=== PATIENT | male | born 1945 | race Caucasian/White ===

== ENCOUNTER 2018-08-18 10:21 | Outpatient (REF) | payer MEDICARE, OTHER, SELFPAY ==
[2018-08-18 19:02] LABS: Anion Gap 8.2 mmol/L (3-11); BUN 14 mg/dL (7-18); CO2 26.8 mmol/L (21.0-32.0); CREATININE 1.49 mg/dL (0.70-1.30); Calcium 8.5 mg/dL (8.5-10.1); Chloride 106 mmol/L (98-107); Estimated GFR 45.98 (mL/min/1.73m2); Glucose 93 mg/dL (70-100); Potassium 4.4 mmol/L (3.5-5.1); Sodium 141 mmol/L (136-145); TSH 4.08 uIU/mL (0.358-3.74)
== END 2018-08-18 10:41 ==
LOC: NCHCN 10:21
PROVIDERS: PCP Nurse Practitioner Family; Visit Provider Physician Assistant Medical
DX: N18.3 Chronic kidney disease, stage 3 (moderate) (principal); E03.9 Hypothyroidism, unspecified; Z86.79 Personal history of other diseases of the circulatory system
CPT/HCPCS: 80048; 84443

== ENCOUNTER → 2019-02-07 10:38 | Outpatient (BNVA) | payer MEDICARE, OTHER, SELFPAY | PROVIDERS: PCP Nurse Practitioner Family; Visit Provider Urology | DX: N40.1 Benign prostatic hyperplasia with lower urinary tract symptoms (principal); N13.8 Other obstructive and reflux uropathy | CPT/HCPCS: 99213 ==

== ENCOUNTER 2019-02-16 15:16 | Outpatient (REF) | payer MEDICARE, OTHER, SELFPAY ==
[2019-02-16 20:07] LABS: Anion Gap 9.2 mmol/L (3-11); BUN 16 mg/dL (7-18); CO2 25.8 mmol/L (21.0-32.0); CREATININE 1.57 mg/dL (0.70-1.30); Calcium 8.7 mg/dL (8.5-10.1); Chloride 106 mmol/L (98-107); Estimated GFR 43.28 (mL/min/1.73m2); Glucose 77 mg/dL (70-100); Potassium 4.4 mmol/L (3.5-5.1); Sodium 141 mmol/L (136-145); TSH 3.41 uIU/mL (0.358-3.74)
== END 2019-02-16 15:36 ==
LOC: NCHCN 15:16
PROVIDERS: PCP Nurse Practitioner Family; Visit Provider Physician Assistant Medical
DX: E03.9 Hypothyroidism, unspecified (principal); N18.3 Chronic kidney disease, stage 3 (moderate); N40.0 Benign prostatic hyperplasia without lower urinary tract symptoms
CPT/HCPCS: 80048; 84443

== ENCOUNTER → 2019-04-06 09:00 | Outpatient (BNVA) | payer MEDICARE, OTHER, SELFPAY | PROVIDERS: PCP Physician Assistant Medical; Referring Provider Nurse Practitioner Family; Visit Provider Physical Therapy Assistant | DX: Z12.11 Encounter for screening for malignant neoplasm of colon (principal); I12.9 Hypertensive chronic kidney disease with stage 1 through stage 4 chronic kidney disease, or unspecified chronic kidney disease; N18.3 Chronic kidney disease, stage 3 (moderate) ==

== ENCOUNTER 2019-04-21 02:45 | Outpatient (CLI) | payer MEDICARE, OTHER, SELFPAY | END 2019-04-21 03:05 | PROVIDERS: PCP Physician Assistant Medical; Visit Provider Physical Therapy Assistant | DX: I10 Essential (primary) hypertension (principal); Z01.810 Encounter for preprocedural cardiovascular examination | CPT/HCPCS: 93005; 93010 ==

== ENCOUNTER 2019-04-28 06:59 | Day surgery (SDC) | payer MEDICARE, OTHER, SELFPAY ==
[2019-04-28 07:11] VITALS: BP 122/64; PULSE 70; RESP 17; TEMP 35.9; O2SAT 98
[2019-04-28] MEDS: Normal Saline 1,000 ML 80 ML IV (07:37)
--- NOTE | 2019-04-28 08:10 | W.PM.ENDDOP ---
Date of service: 04/28/19 Time of Service: 08:11 Endoscopy Report DATE OF PROCEDURE: 04/28/19 PRE-OP DIAGNOSIS: non cardiac chest pain/screening POST-OP DIAGNOSIS: other (gastritis/esophagitis- mild sm polyp x2 @ 30cm) PROCEDURE: egd w/ bx ce w/ polypectomy x1 SURGEON: Sara Danielson ANESTHESIA: GETA ESTIMATED BLOOD LOSS: 2 PATHOLOGY: other COMPLICATIONS: None DISPOSITION: PACU PREP: Miralax COLONOSCOPY RETRACTION TIME: 10 mins PROCEDURE DESCRIPTION: After informed consent was obtained the patient was take to the procedure room and placed in a supine position. Monitors were applied and a time out was done. The patients name, date of , procedure type, allergies to medications and metal in their body was reviewed. A bite block was placed and the patient was sedated. Once sedated and comfortable the gastroscope was advanced through the oropharynx which was grossly normal into the esophagus. The proximal and mid-esophagus were []. In the distal esophagus there was [] noted. The scope was advanced into the stomach and through the pylorus into the 3rd portion of the duodenum. The duodenum was noted to be []. Biopsies were done []. The scope was retracted back into the stomach and biopsies were done to rule out H. pylori. There were [] ulcers. The scope was retroflexed. The cardia and fundus were noted to be normal. There [] a hiatal hernia noted. The scope was retracted back into the esophagus and biopsies were done of the GE junction to rule out Messer's. The Z line was regular. The GE junction was at [] cm. After informed consent was obtained the patient was taken to the procedure room and placed in a left decubitous position. Monitors were applied and a time out was done. The patients name, date of , procedure, allergies to medications and metal in their body was reviewed. The patient was then sedated. Once sedated and comfortable a rectal exam was done. External exam was normal. Internal exam revealed a normal sphincter tone and no palpable masses. The prostate []. The scope was then introduced and retrofelexed. [] internal hemorrhoids were identified. The scope was then advanced to the cecum [] difficulty. The TI and appendiceal orifice were identified. The prep was []. The scope was then slowly retracted over [] minutes back into the rectum. Polyps were removed at []. The scope was removed and the patient was woken up and taken back to Same day surgery in stable condition. The patient tolerated the procedure well and there were no immediate complications. Follow up: The patient should follow up in [] years unless they develop changes in bowel habits or other new gastrointestinal complaints.
--- NOTE | 2019-04-28 09:10 | BOWEL_PTH ---
PATIENT: Alban Condon LOC: [facility] U#:[id number] AGE/SX: 74/M ROOM: RE04/28/[address]: Sara Danielson : 1945 BED: DIS: 04/28/2019 SPEC #: [id number] RECD: 04/28/19 12:49 STATUS: BILL REQ #: [id number] HARSH: 04/28/19 09:[address]: Sara Danielson DEPT: Surgical Specimen RECD BY: Lynsey Cooper ENTERED: 04/28/19 12:50 SP TYPE: Bowel OTHR DR: Que Delacruz V Tissues: 1 - BIOPSY BOWEL 2 - BIOPSY BOWEL Procedures: GROSS AND MICRO LEVEL 4 Comments: [id number]
--- NOTE | 2019-04-28 09:28 | COLE_ITS ---
Date of service: 04/28/19 Time of Service: 09:25 Colonoscopy Report Date of procedure: 04/28/19 Pre-op diagnosis general: crc screen Post-op diagnosis procedure note: other (diverticula ) Procedure: ce Surgeon: Sara Danielson Anesthesia proc note operative: GETA Estimated blood loss (mL): 2 Pathology: other Complications: None Disposition: same day Prep: Miralax Retraction Time: 10 mins Procedure Description: After informed consent was obtained the patient was taken to the procedure room and placed in a left decubitous position. Monitors were applied and a time out was done. The patients name, date of , procedure, allergies to medications and metal in their body was reviewed. The patient was then sedated. Once sedated and comfortable a rectal exam was done. External exam was normal. Internal exam revealed a normal sphincter tone and no palpable masses. The prostate not palpable. The scope was then introduced and retrofelexed. no internal hemorrhoids were identified. The scope was then advanced to the cecum without difficulty. The TI and appendiceal orifice were identified. The prep was adequate . The scope was then slowly retracted over 10 minutes back into the rectum. No Polyps. There was some mild general redness to the mucosa- bx were taken at cecum and 50cm/transverse w/ cold biter. This was not present in left colon. It is prob ably due to irritation from the prep. He does have a few small scattered diverticula in the sigmoid colon. no sign of active bleeding or infection. no polyp. The scope was removed and the patient was woken up and taken back to Same day surgery in stable condition. The patient tolerated the procedure well and there were no immediate complications. Follow up: The patient does not require any further CE's, unless they develop changes in bowel habits or other new gastrointestinal complaints.
--- NOTE | 2019-04-28 09:29 | W.PM.DSUDISC ---
DS: Diagnosis Discharge Diagnosis (1) Diverticula of colon: Status: Acute
[2019-04-28 10:01] VITALS: BP 114/70; PULSE 87; RESP 18; TEMP 36.4; O2SAT 96
== END 2019-04-28 10:23 | disposition home or self-care (01) ==
PROVIDERS: PCP Physician Assistant Medical; Visit Provider Surgery
PROC: 0DJD8ZZ Inspection of Lower Intestinal Tract, Via Natural or Artificial Opening Endoscopic (ICD-10-PCS; CPT 45378; principal; 2019-04-28 08:45)
DX: Z12.11 Encounter for screening for malignant neoplasm of colon (principal); K57.30 Diverticulosis of large intestine without perforation or abscess without bleeding
CPT/HCPCS: 45380; 88305

== ENCOUNTER 2019-05-16 01:10 | Outpatient (CLI) | payer MEDICARE, OTHER, SELFPAY ==
--- NOTE | 2019-05-16 07:49 | DI.CT_ITS ---
SYMPTOM/DIAGNOSIS: ISCHEMIA ON COLONOSCOPY BX. ATRIAL FLUTTER, HTN, i 48.[address] ANGIOGRAPHY OF THE ABDOMEN AND PELVIS: CT angiography was performed with multi slice acquisition and multi planar and 3D reconstruction. There are no prior comparison exams. There is biatrial and biventricular enlargement. The aorta is normal in diameter There is minimal calcification at the origin of the celiac axis but no significant stenosis. There is minimal calcification in the mid to distal abdominal aorta with minimal mural thrombus. The mesenteric vessels are normally opacified. The renal arteries also appear intact. There is no bowel wall thickening or abnormal distension. There is diverticulosis of the lower descending and sigmoid colon without evidence of diverticulitis. There is a large quantity of stool in the rectum. The remainder of the colon shows a moderate quantity of stool. There is a bladder diverticulum at the superior left side of the bladder. A portion of the right anterior bladder is seen herniating in to the right inguinal canal. A large amount of fat also is seen herniating through the right inguinal canal. There is some thickening of the bladder wall which appears diffuse. The prostate does not appear enlarged. The patient may be status post prostatectomy. The appendix appears normal. There is a moderate size hiatal hernia. The liver, spleen, adrenals, pancreas and kidneys are unremarkable. A stone is seen in the gallbladder. There is no gallbladder wall thickening or biliary dilatation. Degenerative changes are seen in the lumbar spine. IMPRESSION: 1. Mild atherosclerotic changes of the abdominal aorta. The branch vessels appear intact without significant stenosis. No bowel ischemia is visible. 2. Large right inguinal hernia containing a portion of the urinary bladder.
[2019-05-16 09:08] LABS: Anion Gap 11.9 mmol/L (3-11); BUN 14 mg/dL (7-18); CO2 25.1 mmol/L (21.0-32.0); CREATININE 1.43 mg/dL (0.70-1.30); Calcium 9.1 mg/dL (8.5-10.1); Chloride 106 mmol/L (98-107); Estimated GFR 48.08 (mL/min/1.73m2); Glucose 96 mg/dL (70-100); Potassium 4.5 mmol/L (3.5-5.1); Sodium 143 mmol/L (136-145)
[2019-05-16] MEDS: Omnipaque 350 MG/ML 100 ML BTL IJ (09:10)
== END 2019-05-16 01:30 ==
PROVIDERS: PCP Physician Assistant Medical; Visit Provider Surgery
DX: I10 Essential (primary) hypertension (principal); I48.92 Unspecified atrial flutter; N18.3 Chronic kidney disease, stage 3 (moderate); K44.9 Diaphragmatic hernia without obstruction or gangrene; K40.90 Unilateral inguinal hernia, without obstruction or gangrene, not specified as recurrent; K57.30 Diverticulosis of large intestine without perforation or abscess without bleeding; N32.3 Diverticulum of bladder
CPT/HCPCS: 80048; 74174; J3490

== ENCOUNTER 2019-08-17 11:12 | Outpatient (REF) | payer MEDICARE, OTHER, SELFPAY ==
[2019-08-17 18:32] LABS: Anion Gap 9.7 mmol/L (3-11); BUN 17 mg/dL (7-18); CO2 25.3 mmol/L (21.0-32.0); Calcium 8.8 mg/dL (8.5-10.1); Chloride 106 mmol/L (98-107); Estimated GFR 42.24 (mL/min/1.73m2); Glucose 98 mg/dL (70-100); Potassium 4.5 mmol/L (3.5-5.1); Sodium 141 mmol/L (136-145)
[2019-08-21 10:50] LABS: Hepatitis C Ab w Rflx HCV PCR Negative (NEGAT)
[2019-08-21 11:42] LABS: HIV-1/2 Ag & Ab Screen Negative (NEGAT)
== END 2019-08-17 11:32 ==
LOC: NCHCN 11:12
PROVIDERS: PCP Physician Assistant Medical; Visit Provider Nurse Practitioner Family
DX: N18.3 Chronic kidney disease, stage 3 (moderate) (principal); Z11.4 Encounter for screening for human immunodeficiency virus [HIV]; Z11.59 Encounter for screening for other viral diseases
CPT/HCPCS: 80048; 86803; 87389

== ENCOUNTER → 2020-02-05 13:27 | Outpatient (BNVA) | payer MEDICARE, OTHER, SELFPAY | PROVIDERS: PCP Physician Assistant Medical; Visit Provider Urology | DX: N40.1 Benign prostatic hyperplasia with lower urinary tract symptoms (principal); N13.8 Other obstructive and reflux uropathy | CPT/HCPCS: 99213 ==

== ENCOUNTER 2020-08-22 08:42 | Outpatient (REF) | payer MEDICARE, OTHER, SELFPAY ==
[2020-08-22 18:57] LABS: Abs Immature Grans 0.02 10^3/uL (0.0-0.06); Absolute Basophil Count 0.13 10^3/uL (0.0-0.2); Absolute Eosinophil Count 0.63 10^3/uL (0.0-0.7); Absolute Lymphocyte Count 1.27 10^3/uL (1.2-3.4); Absolute Neutrophil Count 5.94 10^3/uL (1.2-6.7); Basophils % 1.5; Eosinophils % 7.1; HCT 42.5 % (40.0-50.0); HGB 14.4 g/dL (13.5-17.5); Immature Grans % 0.2; Lymphocytes % 14.3; MCHC 33.9 % (32.0-36.0); MCV 85.7 fL (80-95); MPV 10.8 fL (8.0-11.0); Monocytes % 10.1; Neutrophils % 66.8; Nucleated RBC 0 %; Platelet Count 275 10^3/uL (130-400); RBC 4.96 10^6/uL (4.36-5.78); RDW 13.2 % (11.8-14.1); RDW-SD 40.9 fL; WBC 8.89 10^3/uL (4.4-10.8)
[2020-08-22 19:25] LABS: ALT 16 U/L (16-63); AST 20 U/L (15-37); Albumin 3.3 g/dL (3.4-5.0); Alkaline Phosphatase 91 U/L (46-116); Anion Gap 9.1 mmol/L (3-11); BUN 16 mg/dL (7-18); Bilirubin, Total 0.9 mg/dL (0.2-1.0); CO2 23.9 mmol/L (21.0-32.0); CREATININE 1.41 mg/dL (0.70-1.30); Calcium 8.6 mg/dL (8.5-10.1); Calculated LDL 108 mg/dL (<100); Chloride 108 mmol/L (98-107); Cholesterol 168 mg/dL (<200); Estimated GFR 48.74 (mL/min/1.73m2); Glucose 95 mg/dL (74-106); HDL Cholesterol 35 mg/dL (40-60); Potassium 4.4 mmol/L (3.5-5.1); Sodium 141 mmol/L (136-145); TSH (W/Ref FT4) 4.32 uIU/mL (0.36-3.74); Total Protein 6.6 g/dL (6.4-8.2); Triglyceride 127 mg/dL (<150)
== END 2020-08-22 09:02 ==
LOC: NCHCN 08:42
PROVIDERS: PCP Physician Assistant Medical; Visit Provider Physician Assistant
DX: E03.9 Hypothyroidism, unspecified (principal); N18.30 Chronic kidney disease, stage 3 unspecified; J30.2 Other seasonal allergic rhinitis; N40.0 Benign prostatic hyperplasia without lower urinary tract symptoms; Z86.79 Personal history of other diseases of the circulatory system
CPT/HCPCS: 80053; 80061; 84439; 84443; 85025

== ENCOUNTER → 2021-02-07 14:11 | Outpatient (BNVA) | payer MEDICARE, OTHER, SELFPAY | PROVIDERS: Referring Provider Physician Assistant Medical; Visit Provider Urology | DX: N40.1 Benign prostatic hyperplasia with lower urinary tract symptoms (principal); R35.0 Frequency of micturition | CPT/HCPCS: 81003; 99213; 99214 ==

== ENCOUNTER 2021-02-07 18:33 | Outpatient (REF) | payer MEDICARE, OTHER, SELFPAY | END 2021-02-07 18:34 | disposition home or self-care (01) | LOC: LBN 18:33 | PROVIDERS: Visit Provider Urology | DX: N13.8 Other obstructive and reflux uropathy (principal); N40.1 Benign prostatic hyperplasia with lower urinary tract symptoms | CPT/HCPCS: 87077; 87086; 87186 ==

== ENCOUNTER 2021-02-18 13:44 | Outpatient (REF) | payer MEDICARE, OTHER, SELFPAY ==
[2021-02-18 17:48] LABS: RBC >50 HPF (0-2)
[2021-02-18 17:49] LABS: C & S Indicated? C&S Done As Ordered
== END 2021-02-18 13:45 | disposition home or self-care (01) ==
LOC: NCHCN 13:44
PROVIDERS: PCP Physician Assistant; Visit Provider Physician Assistant
DX: R31.9 Hematuria, unspecified (principal)
CPT/HCPCS: 81015; 87086

== ENCOUNTER 2021-02-24 17:42 | Outpatient (REF) | payer MEDICARE, OTHER, SELFPAY | END 2021-02-24 17:43 | disposition home or self-care (01) | LOC: NCHCN 17:42 | PROVIDERS: PCP Physician Assistant; Visit Provider Physician Assistant | DX: R31.9 Hematuria, unspecified (principal) | CPT/HCPCS: 87086 ==

== ENCOUNTER 2021-03-17 02:31 | Outpatient (CLI) | payer MEDICARE, OTHER, SELFPAY ==
--- NOTE | 2021-03-17 07:30 | DI.US_ITS ---
EXAM: US RENAL CLINICAL HISTORY: hematuria,R31.0 TECHNIQUE: Ultrasound of both kidneys performed using standard protocol. COMPARISON: None FINDINGS: RIGHT KIDNEY: Measures 10.7 cm in length. No cysts evident. Normal cortical thickness and corticomedullary differen tiation .No solid masses No intrarenal calculi nor hydronephrosis. LEFT KIDNEY: Measures 11.1 cm in length. No cysts evident. Normal cortical thickness and corticomedullary differe ntiaion. No solids masses. No intrarenal calculi nor hydonephrosis. URINARY BLADDER: Prevoid volume is 68 cc Patient was apparently not able to void In addition to bladder wall trabeculation there was a focal area of bladder wall thickening on the an terior superior aspect of the bladder. Cystoscopy recommended. Ureterovesical jets: Left identified. Right was not identified. Prostate gland is slightly enlarged IMPRESSION: 1. No significant ultrasound findings in the kidneys. 2. Patient not adequately hydrated for this exam will knee prevoid volume 68 cc However, there does appear to be both bladder wall trabeculation and focal thickening of the bladder wall anterosuperior aspect which will require cystoscopy to rule out neoplasm. DATA REPOSITORY:
== END 2021-03-17 02:51 ==
PROVIDERS: PCP Physician Assistant; Visit Provider Urology
DX: R31.0 Gross hematuria (principal); N40.0 Benign prostatic hyperplasia without lower urinary tract symptoms; N32.89 Other specified disorders of bladder
CPT/HCPCS: 76770

== ENCOUNTER → 2021-04-29 08:56 | Outpatient (BNVA) | payer MEDICARE, OTHER, SELFPAY | PROVIDERS: PCP Physician Assistant; Referring Provider Physician Assistant; Visit Provider Urology | DX: R31.0 Gross hematuria (principal) | CPT/HCPCS: 99213; 99443 ==

== ENCOUNTER 2021-08-20 21:08 | Observation (INO) | payer MEDICARE, OTHER, SELFPAY ==
[2021-08-20 21:10] VITALS: BP 117/83; PULSE 88; RESP 19; TEMP 36.1; O2SAT 98
--- NOTE | 2021-08-20 21:15 | RT.EKG_ITS ---
APPROVED REPORT Exam: Resting ECG Reason for Exam: Dizziness Patient Location: E HR:82 bpm ECG Measurements Heart Rate 82 AXIS LA [id number] P [id number] QRSd 110 QRS -18 QT 369 T -18 QTc 448 Conclusion Atrial flutter...A-rate 272
[2021-08-20 21:16] VITALS: RESP 19
--- NOTE | 2021-08-20 22:05 | ED.GENADUL_ITS ---
Discharge Plan Disposition Patient Disposition: HOME Condition: Stable Discharge Details Clinical Impression: Lightheadedness, Diarrhea, Hematochezia Primary Care Provider: Any Gibbons ED Provider: Vijay Latham Discharge Data Discharge Date/Time-TO BE ENTERED AT DEPARTURE: 08/21/21 09:46 Medical Decision Making <Manuel Groves MD - Last Filed: 08/22/21 22:37> 76-year-old male with history of a flutter, chronic kidney disease, presents after dizzy spell while square dancing. Episode was brief lasting few minutes and resolved. He did have a loose bowel movement. Patient asymptomatic on init ial assessment. Patient hemodynamically stable and neurologically intact with no concerning findings on exam EKG was reviewed and interpreted by me: Atrial flutter, 82 bpm, no STEMI. Screening labs were reviewed and patient does have mild leukocytosis. Electrolytes are normal. Patient did develop some nausea here in the emerge department and was given Zofran IV. He was given a 500 mL IV fluid bolus. Considered ACS. Patient has no chest pain. Troponin was drawn 3 hours after episode and negative. Patient ambulated around the emergency department and noted to have some weakness in his leg. We will give additional IV fluid and check a delta troponin. <Vijay Latham DO - Last Filed: 08/21/21 06:01> Patient was signed out to me by my colleague Dr. Manuel Groves. Please refer to his HPI, physical exam, assessment and plan. At time of signout we are awaiting repeat troponin and EKG. These have returned and are stable/unremarkable. Reassessment of the patient demonstrates a well-appearing male, patient is in mild atrial fibrillation. Abdomen nontender, neurologic exam unremarkable. Patient appears notably stable, and feels better but still does feel slightly weak. At this time at 2 AM patient does not have a ride home. Patient was given option of continued observation versus discharge, he states he would like to go home rather than stay overnight in the hospital. Unfortunately because he does not have a ride, and is not currently available we will keep the patient here in the ED for the next few hours until they are available. We will discharge him today 2 hours. We will continue to gently rehydrate. We will give an additional 1 L fluid bolus. 5:57 AM On reassessment the patient has had 3-4 episodes of profuse watery diarrhea while here. Patient's heart rate remains elevated at around 110 after repeat 1 L fluid bolus. We did perform a Hemoccult test of the stool, and it is Hemoccult positive. Repeat abdominal exam continues to show no abdominal tenderness. Concern for potential infectious diarrhea versus GI bleed, hemoglobin stable though. He obviously is on Pradaxa which does preclude him to high likelihood for bleeding. Patient does live alone. With the patient's persistent diarrhea, mild tachycardia, I do feel that he would benefit from inpatient admission, continued hydration and close monitoring. Discussed the case with the hospitalist Dr. Perez, she agrees with the assessment and plan. I have extensively reviewed the treatment plan with the patient. I have addressed all patient concerns at this time. I have also discussed the plan with the admitting physician and they agree with the current assessment and plan and have agreed to assume responsibility for the patient. All parties demonstrate verbal understanding and agreement with our assessment and plan at this time. The documentation in this chart was dictated using [employer] dictation software. Please excuse any dictation errors. HPI <Manuel Groves MD - Last Filed: 08/22/21 22:37> General Mode of arrival: EMS . Date/Time Provider Initiated Documentation: 08/20/21 21:25 . Limitations to Documentation: no limitations . Information obtained by: patient and EMS . HPI Narrative: 76-year-old male presents after presyncopal spell. Patient was square dancing for over an hour and developed some dizziness. He describes the dizziness as lightheadedness. Symptoms lasted a couple minutes and he rested and symptoms completely resolved. Patient then had a loose bowel movement. He does note he had a few loose bowel movements over the past couple weeks. He denies associated chest pain. No shortness of breath. No abdominal pain. No headache, numbness or tingling or weakness. Related Data Home Medications Medication Instructions Recorded Confirmed ascorbic acid (vitamin C) [Vitamin 500 mg PO DAILY 04/22/13 08/20/21 C] ergocalciferol (vitamin D2) 400 units PO DAILY tab-cap 04/22/13 08/20/21 ginkgo biloba 400 mg PO DAILY 04/22/13 08/20/21 Pradaxa 150 mg PO BID #180 tab-cap 09/18/13 08/20/21 metoprolol succinate 1.5 tab PO DAILY #135 tab-cap 09/18/13 08/20/21 tamsulosin 0.4 mg PO BID 08/21/21 08/21/21 loperamide 2 mg PO QLOOSE PRN #30 cap 08/22/21 omeprazole 20 mg PO DAILY #30 cap 08/22/21 Previous Rx's Medication Instructions Recorded loperamide 2 mg PO QLOOSE PRN #30 cap 08/22/21 omeprazole 20 mg PO DAILY #30 cap 08/22/21 Allergies Allergy/AdvReac Type Severity Reaction Status Date / Time No Known Allergies Allergy Verified 08/20/21 21:26 General Stated Complaint: Dizzy/Sync JOCY: 3 Review of Systems <Manuel Groves MD - Last Filed: 08/22/21 22:37> All systems reviewed & are unremarkable except as noted in HPI and below Constitutional Constitutional: Denies fever(s) and Denies weakness Cardiovascular Cardiovascular: Denies chest pain Respiratory Respiratory: Denies cough Musculoskeletal Musculoskeletal: Denies numbness and Denies tingling Neurologic Neurologic: Denies numbness, Denies tingling and Denies weakness PFSH <Manuel Groves MD - Last Filed: 08/22/21 22:37> Medical History (Updated 08/22/21 @ 15:57 by Brooklyn Ye NP) Atrial flutter (03/29/13) 08/20/11 [facility] BPH (benign prostatic hyperplasia) CKD (chronic kidney disease) Decreased hearing Diverticula of colon Gross hematuria Hypothyroidism Pt. states he is unaware of this condition Ptosis of eyebrow Seasonal allergies Surgical History Extraction of cataract (08/08/13) History of colonoscopy Repair of inguinal hernia RIGHT Family History Mother Diabetes Dementia Father No problems noted. Brother No problems noted. Grandfather No problems noted. Grandfather No problems noted. Grandmother No problems noted. Grandmother No problems noted. Brother , Suicide at age 46. No problems noted. Social History Smoking/Tobacco Use Status: Never Smoking risk assessment performed?: Yes Alcohol Intake: never Drug use: Never Substance use type: does not use Do you feel safe at home: Yes Do you feel safe in your relationship?: Yes Exam <Manuel Groves MD - Last Filed: 08/22/21 22:37> Const General: cooperative and no acute distress [facility] Head: normocephalic and atraumatic Mouth: moist mucous membranes Eyes Conjunctivae: normal conjunctivae Sclera: normal sclerae EOM: EOM intact bilaterally Neck Neck: trachea midline and supple Resp Auscultation: clear to auscultation bilaterally, no rales, no rhonchi and no wheezes Cardio Rate: regular rate and not tachycardic Rhythm: regular rhythm GI Palpation: soft, not firm, no guarding, no masses, not rigid and nontender Skin General skin exam: no rashes or lesions noted Neuro General: patient alert, patient awake, patient oriented x3 and tone normal Cranial Nerves: PERRL, accommodation normal, EOM intact bilaterally, no nystagmus, facial strength normal, tongue midline, able to elevate shoulders bilaterally and symmetric palate elevation Cognition: normal cognition Speech: speech normal Motor: strength 5/5 throughout Sensory Exam: no sensory deficits noted Extrem General: no edema Psych Appearance: grossly normal Mental Status: mental status grossly normal Speech and Movement: speech and movement normal Course <Manuel Groves MD - Last Filed: 08/22/21 22:37> Vital Signs Vital signs: Vital Signs Temperature 36.1 C L 08/20/21 21:10 Pulse 88 08/20/21 21:10 Respiratory Rate 19 08/20/21 21:10 Blood Pressure 117/83 08/20/21 21:10 Pulse Oximetry 98 08/20/21 21:10 Temperature 36.1 C L 08/20/21 21:10 Temperature Source Temporal Artery Scan 08/20/21 21:10 Pulse 88 08/20/21 21:10 Respiratory Rate 19 08/20/21 21:16 Respiratory Effort 08/20/21 21:16 Respiratory Depth Normal 08/20/21 21:16 Respiratory Pattern Normal 08/20/21 21:16 Blood Pressure 117/83 08/20/21 21:10 Blood Pressure Position Sitting 08/20/21 21:10 Pulse Oximetry 98 08/20/21 21:10 Oxygen Delivery Method Room Air 08/20/21 21:10 Oxygen Flow Rate 0 09/29/21 21:10 Pain Level 0 08/20/21 21:10 Sign Out <Manuel Groves MD - Last Filed: 08/22/21 22:37> Sign Out Data: Sign Out Comment: Care signed out to Dr. Latham. Plan to reassess patient after second IV bolus and delta troponin. Last updated by Manuel Groves MD at 08/21/21 00:19 PAWSS <Manuel Groves MD - Last Filed: 08/22/21 22:37> Pt Consumed Any Amount of Alcohol Within the Last 30 days OR had positive CHERRIE Upon Admission: No
[2021-08-20 22:13] LABS: Abs Immature Grans 0.06 10^3/uL (0.0-0.06); Absolute Basophil Count 0.01 10^3/uL (0.0-0.2); Absolute Lymphocyte Count 0.69 10^3/uL (1.2-3.4); Absolute Monocyte Count 0.64 10^3/uL (0.1-0.8); Basophils % 0.1; Eosinophils % 9.3; HCT 42.6 % (40.0-50.0); HGB 13.6 g/dL (13.5-17.5); Immature Grans % 0.4; Lymphocytes % 4.9; MCH 26.9 pg (27.0-33.0); MCHC 31.9 % (32.0-36.0); MCV 84.2 fL (80-95); MPV 9.8 fL (8.0-11.0); Monocytes % 4.6; Neutrophils % 80.7; Nucleated RBC 0 %; Platelet Count 268 10^3/uL (130-400); RBC 5.06 10^6/uL (4.36-5.78); RDW 14.6 % (11.8-14.1); RDW-SD 44.8 fL
[2021-08-20 22:43] LABS: ALT 19 U/L (16-63); AST 16 U/L (15-37); Albumin 3.4 g/dL (3.4-5.0); Alkaline Phosphatase 100 U/L (46-116); Anion Gap 8.8 mmol/L (3-11); BUN 17 mg/dL (7-18); Bilirubin, Total 0.3 mg/dL (0.2-1.0); CO2 25.2 mmol/L (21.0-32.0); CREATININE 1.6 mg/dL (0.70-1.30); Calcium 8.8 mg/dL (8.5-10.1); Chloride 107 mmol/L (98-107); Estimated GFR 42.01 (mL/min/1.73m2); Glucose 105 mg/dL (74-106); Potassium 4.5 mmol/L (3.5-5.1); Sodium 141 mmol/L (136-145); Total Protein 6.9 g/dL (6.4-8.2)
[2021-08-20] MEDS: Ondansetron 4 MG/2 ML VIAL IVP (23:07)
[2021-08-20] MEDS: Normal Saline 500 ML 1000 ML IV (23:08)
[2021-08-20 23:37] LABS: Troponin I < 0.05 ng/mL (<0.06)
[2021-08-21] VITALS (10 sets, daily range): BP systolic 105–125; BP diastolic 68–76; PULSE 55–124; RESP 17–20; TEMP 36.4–37.2; O2SAT 96–99
--- NOTE | 2021-08-21 | DI.RAD_ITS ---
Exam(s) XR PORTABLE CHEST AP EXAM: XR PORTABLE CHEST AP CLINICAL HISTORY: crackles R lung TECHNIQUE: 2D digital imaging was performed of the chest. One image was obtained. An AP view was ob tained. COMPARISON: CR CHEST 2 VIEWS PA,LAT from 08/20/2011 CR CHEST 2 VIEWS PA,LAT from 08/20/2011 FINDINGS: MEDIASTINUM: Normal. HEART: Normal. PULMONARY VASCULATURE: Normal. LUNGS: Clear. PLEURAL SPACE: No pleural effusion or pneumothorax. BONE:Within normal limits for the patient's age. OTHER FINDINGS:There is unchanged elevation of the right hemidiaphragm. IMPRESSION: No acute pulmonary findings. DATA REPOSITORY: RADIATION DOSE DELIVERED:
[2021-08-21 00:46] LABS: Troponin I < 0.05 ng/mL (<0.06)
--- NOTE | 2021-08-21 01:30 | RT.EKG_ITS ---
APPROVED REPORT Exam: Resting ECG Reason for Exam: weakness Patient Location: E HR:111 bpm ECG Measurements Heart Rate 111 AXIS MA [id number] P [id number] QRSd 80 QRS -23 QT 367 T [id number] QTc 495 Conclusion Atrial flutter...A-rate 272 Physician: no stemi, no significant change
--- NOTE | 2021-08-21 05:56 | W.PM.HP.N ---
Date of service: 08/21/21 Time of Service: 06:30 Assessment and Plan Assessment and plan (1) Near syncope: Status: Acute Assessment and plan: Suspect vasovagal event. Check echo. Keep on tele. Not orthostatic - resume flomax. Will gently hydrate and treat diarrhea. (2) Diarrhea: Status: Acute Assessment and plan: Acute vs chronic. Stool studies pending. Will start questran and add prn imodium. CT abdomen with evidence of both stercoral colitis and diarrheal illness as well as mesenteric lymph nodes. (3) Atrial flutter: Status: Acute Assessment and plan: Will separate toprol XL into 3 doses of lopressor with holding parameters and monitor on tele. Hydrate IV. (4) Blood in stool: Status: Acute Assessment and plan: Will hold anticoagulation and monitor H/H. (5) DVT prophylaxis: Status: Acute Assessment and plan: Pradaxa on hold. Received a dose this am. Would start TEDS/SCDs this evening if bleeding is proven to be clinically significant. (6) Discharge planning issues: Status: Acute Assessment and plan: Full code History of Present Illness History of Present Illness Chief Complaint: Diarrhea, near syncope Narrative: Mr Condon is a 76 year old male with PMHx of Atrial flutter on pradaxa and metoprolol, CKD, hypothyroidism, BPH, who had a near syncopal episode yesterday while square dancing with fecal incontinence at the time. The patient was found to be in Atrial Flutter, rates were controlled. He ruled out for ACS and was awaiting his ride in the ED when he was noted to have several more explosive diarrheal BMs. He had a benign abdomeninal exam per ED providers. Observation on hospitalist service was requested due to concerns for clinically significant diarrhea which was weakening the patient to the point of raising questions about safety of his ambulation. He is hemoccult positive. The patient denies abdominal pain now and he feels better. He still feels weak. Denies dizziness, chest pain, shortness of breath, fever, cough, contact with anyone with COVID-19. Review of Systems All systems reviewed & are unremarkable except as noted in HPI and below PFSH Medical History (Updated 08/21/21 @ 06:16 by Ashley Perez MD) Atrial flutter (03/29/13) 08/20/11 [facility] BPH (benign prostatic hyperplasia) CKD (chronic kidney disease) Decreased hearing Diverticula of colon Gross hematuria Hypothyroidism Pt. states he is unaware of this condition Ptosis of eyebrow Seasonal allergies Surgical History Extraction of cataract (08/08/13) History of colonoscopy Repair of inguinal hernia RIGHT Family History Mother Diabetes Dementia Father No problems noted. Brother No problems noted. Grandfather No problems noted. Grandfather No problems noted. Grandmother No problems noted. Grandmother No problems noted. Brother , Suicide at age 46. No problems noted. Social History Smoking/Tobacco Use Status: Never Smoking risk assessment performed?: Yes Alcohol Intake: never Drug use: Never Substance use type: does not use Do you feel safe at home: Yes Do you feel safe in your relationship?: Yes Meds Allergies and Home Medications Allergies Allergy/AdvReac Type Severity Reaction Status Date / Time No Known Allergies Allergy Verified 08/20/21 21:26 Home Medications Medication Instructions Recorded Confirmed Type ascorbic acid (vitamin C) [Vitamin 500 mg PO DAILY 04/22/13 08/20/21 History C] ergocalciferol (vitamin D2) 400 units PO DAILY tab-cap 04/22/13 08/20/21 History ginkgo biloba 400 mg PO DAILY 04/22/13 08/20/21 History Pradaxa 150 mg PO BID #180 tab-cap 09/18/13 08/20/21 History metoprolol succinate 1.5 tab PO DAILY #135 tab-cap 09/18/13 08/20/21 History tamsulosin 0.4 mg PO BID 08/21/21 08/21/21 History Exam Narrative Exam Narrative: General: Pleasant elderly male, A&Ox3, laying comfortably flat in bed Neurological: A&Ox3, no focal deficits Psychiatric: appropriate speech pattern/content Skin: Visible skin intact HEENT: Atraumatic, normocephalic, EOMI, dry MM, clear oropharynx, no submandibular or cervical lymphadenopathy, no goiter or JVD Cardiovascular: irregularly irregular rhythm, no m/r/g Lungs: crackles to mid-R lung Gastrointestinal: soft, nontender, nondistended; R large inguinal vs femoral hernia Genitourinary: deferred Extremities: trace edema BLE's, 1+pedal pulses B Results Imaging Additional studies: CT abdomen/pelvis pending EKG #1: Aflutter, HR 82, no acute ischemia EKG #2: Aflutter, HR 111, no acute ischemia Labs Result diagrams: 08/21/21 05:45 08/21/21 05:45 Labs: Laboratory Results - last 24 hr 08/20/21 08/20/21 08/20/21 22:00 22:00 23:15 WBC 14.00 H RBC 5.06 Hgb 13.6 Hct 42.6 MCV 84.2 MCH 26.9 L MCHC 31.9 L RDW 14.6 H Plt Count 268 MPV 9.8 Immature Gran % 0.4 Neutrophils % 80.7 Lymphocytes % 4.9 Monocytes % 4.6 Eosinophils % 9.3 Basophils % 0.1 Nucleated RBC % 0 Absolute Neutrophils 11.30 H Absolute Lymphocytes 0.69 L Absolute Monocytes 0.64 Absolute Eosinophils 1.30 H Absolute Basophils 0.01 Sodium 141 Potassium 4.5 Chloride 107 Carbon Dioxide 25.2 Anion Gap 8.8 BUN 17 Creatinine 1.6 H Estimated GFR/1.73 m2 42.01 Glucose 105 Calcium 8.8 Total Bilirubin 0.3 AST 16 ALT 19 Alkaline Phosphatase 100 Troponin I < 0.05 Total Protein 6.9 Albumin 3.4 08/21/21 00:25 WBC RBC Hgb Hct MCV MCH MCHC RDW Plt Count MPV Immature Gran % Neutrophils % Lymphocytes % Monocytes % Eosinophils % Basophils % Nucleated RBC % Absolute Neutrophils Absolute Lymphocytes Absolute Monocytes Absolute Eosinophils Absolute Basophils Sodium Potassium Chloride Carbon Dioxide Anion Gap BUN Creatinine Estimated GFR/1.73 m2 Glucose Calcium Total Bilirubin AST ALT Alkaline Phosphatase Troponin I < 0.05 Total Protein Albumin Last Vital Signs Temp 36.8 C 08/21/21 04:09 Pulse 108 H 08/21/21 04:09 Resp 20 08/21/21 04:09 BP 125/75 08/21/21 04:09 Pulse Ox 97 08/21/21 04:09 PAWSS Pt Consumed Any Amount of Alcohol Within the Last 30 days OR had positive CHERRIE Upon Admission: No
[2021-08-21 06:01] LABS: Abs Immature Grans 0.06 10^3/uL (0.0-0.06); Absolute Basophil Count 0.03 10^3/uL (0.0-0.2); Absolute Eosinophil Count 1.61 10^3/uL (0.0-0.7); Absolute Lymphocyte Count 0.21 10^3/uL (1.2-3.4); Absolute Monocyte Count 0.72 10^3/uL (0.1-0.8); Basophils % 0.2; Eosinophils % 12.1; HCT 40.6 % (40.0-50.0); HGB 13.1 g/dL (13.5-17.5); Immature Grans % 0.5; Lymphocytes % 1.6; MCH 26.9 pg (27.0-33.0); MCHC 32.3 % (32.0-36.0); MCV 83.4 fL (80-95); Monocytes % 5.4; Neutrophils % 80.2; Nucleated RBC 0 %; Platelet Count 264 10^3/uL (130-400); RBC 4.87 10^6/uL (4.36-5.78); RDW 14.8 % (11.8-14.1); RDW-SD 44.9 fL; WBC 13.31 10^3/uL (4.4-10.8)
[2021-08-21 06:01] LABS: C Diff PCR Negative (Negative)
[2021-08-21 06:03] LABS: Absolute Neutrophil Count 10.67 10^3/uL (1.2-6.7)
[2021-08-21 06:21] LABS: ALT 15 U/L (16-63); AST 16 U/L (15-37); Albumin 2.8 g/dL (3.4-5.0); Alkaline Phosphatase 87 U/L (46-116); Anion Gap 9.7 mmol/L (3-11); BUN 21 mg/dL (7-18); Bilirubin, Total 0.7 mg/dL (0.2-1.0); CO2 22.3 mmol/L (21.0-32.0); CREATININE 1.4 mg/dL (0.70-1.30); Calcium 7.8 mg/dL (8.5-10.1); Chloride 110 mmol/L (98-107); Estimated GFR 49.01 (mL/min/1.73m2); Glucose 133 mg/dL (74-106); Potassium 4.8 mmol/L (3.5-5.1); Sodium 142 mmol/L (136-145)
--- NOTE | 2021-08-21 06:30 | DI.CT_ITS ---
Exam(s) CT ABDOMEN PELVIS WO EXAM: CT ABDOMEN PELVIS WO CLINICAL HISTORY: intractable diarrhea. TECHNIQUE: Imaging Protocol: Axial computed tomography images with coronal and sagittal reformatted images were created and reviewed. COMPARISON: CT CT ABDOMEN/ PELVIS CTA from 05/16/2019 FINDINGS: The examination is limited due to patient motion artifact. ABDOMEN: Lung Bases: Normal where visualized. There is a stable peripheral right lower lobe pulmonary nodule. Large hiatal hernia. Liver: Normal density. No measurable mass. Gallbladder and biliary tract: Cholelithiasis. No biliary ductal dilatation. Pancreas: Normal density, no abnormal calcifications or inflammatory process. Spleen: Normal. Kidneys: Normal size, contour and axis.No radiodense stones or obstructive uropathy. No masses seen. Adrenal glands: No mass is seen. Lymph nodes: Mildly prominent mesenteric lymph nodes. Abdominal Aorta: Abdominal portion non-dilated. Mild atherosclerosis. PELVIS: Bladder:Symmetric distention. Multiple bladder wall diverticula are noted. There is again seen a righ t inguinal hernia containing fat and a portion of the urinary bladder. This is unchanged compared to the prior examination. There is however mild thickening of the wall of the herniated urinary bladder with mild surrounding inflammation. Bowel: No obstruction or bowel wall thickening. No evidence of appendicitis. There is a large amount of stool in the rectum with mild wall thickening. Stercoral colitis cannot be excluded. There is dive rticulosis seen in the sigmoid colon but no evidence of acute diverticulitis. There is fluid seen thr oughout the colon which can be seen with diarrheal illness. Peritoneal cavity: Mild increased attenuation in the mesentery with mildly prominent mesenteric lymph nodes. No free air. Reproductive organs: Mildly enlarged prostate gland. Bones: Within normal limits. Soft Tissues: Within normal limits. IMPRESSION: 1. Moderately large amount of stool in the rectum with mild rectal wall thickening which may reflect stercoral colitis. 2. Fluid seen within the colon and small bowel which can be seen with diarrheal illness. 3. Mild thickening of the wall of the herniated portion of the urinary bladder. An inflammatory infec tious process should be considered. Neoplasm cannot be excluded. Bladder ultrasound or cystoscopy milvia uld be considered for further evaluation. 4. New increased attenuation in the mesentery with mildly prominent mesenteric lymph nodes. This can be seen with mesenteric panniculitis, edema or less likely neoplasm. RADIATION DOSE DELIVERED: 837.58mGy.cm Total DLP DATA REPOSITORY: All CT scans at this facility are submitted to the National Radiology Data Registry (NRDR) Dose Index Registry (DIR) with the [employer] (A[employer]). RADIATION OPTIMIZATION: All CT scans at this facility use at least one of these dose optimization te chniques: automated exposure control; mA and/or kV adjustment per patient size (includes targeted exa ms where dose is matched to clinical indication); or iterative reconstruction.
[2021-08-21 06:47] LABS: Source Nasal/Nares
[2021-08-21 06:51] LABS: FREE T4 0.98 ng/dL (0.76-1.46); TSH 1.39 uIU/mL (0.36-3.74)
--- NOTE | 2021-08-21 07:32 | DI.VRAD_ITS ---
PROCEDURE INFORMATION: Exam: CT Abdomen And Pelvis Without Contrast Exam date and time: 08/21/2021 5:43 AM Age: 76 years old Clinical indication: Other: Intractable diarrhea TECHNIQUE: Imaging protocol: Computed tomography of the abdomen and pelvis without contrast. Radiation optimization: All CT scans at this facility use at least one of these dose optimization techniques: automated exposure control; mA and/or kV adjustment per patient size (includes targeted exams where dose is matched to clinical indication); or iterative reconstruction. COMPARISON: CT ABDOMEN/ PELVIS CTA 05/16/2019 9:32 AM FINDINGS: Limitations: Lack of intravenous contrast limits assessment of the vasculature and solid viscera. Lungs: Bibasilar atelectasis. 6 mm right lower lobe nodule on image 14, minimally increased in size since 05/16/2019. Heart: Coronary artery atherosclerotic disese. Mediastinal space: Large, fluid distended hiatal hernia. Increased size of the hernia relative to prior study. Liver: No acute pathology or concerning masses. Gallbladder and bile ducts: Cholelithiasis is present. No significant gallbladder wall thickening or pericholecystic fluid collection. Pancreas: No acute inflammation. Spleen: No concerning lesions. Adrenal glands: No mass. Kidneys and ureters: Mild nonspecific bilateral perinephric stranding. No hydronephrosis. No renal stones. Stomach and bowel: Moderate stool bolus at the rectum with mild rectal wall thickening. Liquid stool in the colon and liquid contents in distal small bowel compatible with concurrent diarrheal illness. Appendix: No evidence of appendicitis. Intraperitoneal space: No free air. No significant fluid collection. Vasculature: Scattered atherosclerotic calcifications. Lymph nodes: There is mild vague increased attenuation within the mesentery. Multiple nonspecific small mesenteric lymph nodes are also present. Urinary bladder: Urinary bladder is distended with urine with trabeculated wall with multiple diverticula, similar to prior study. As previously, portion of the anterior bladder herniates into the a large right inguinal hernia. There is mild thickening of the urinary bladder wall anteriorly and at the point of herniation. Large right inguinal hernia containing fat and portion of the urinary bladder. Reproductive: Unremarkable as visualized. Bones/joints: Multilevel spondylosis. Soft tissues: Small fat-containing umbilical hernia is present without inflammation. IMPRESSION: 1. Moderate stool bolus at the rectum with mild rectal wall thickening. Correlate for fecal impaction and mild stercoral colitis. 2. Liquid stool in the colon and liquid contents in distal small bowel compatible with concurrent diarrheal illness. 3. Large hiatal hernia, increased since prior study. 4. Cholelithiasis. 5. Urinary bladder is distended with urine with trabeculated wall with multiple diverticula, similar to prior study. As previously, portion of the anterior bladder herniates into the a large right inguinal hernia. There is mild thickening of the urinary bladder wall anteriorly and at the point of herniation. Bladder can be better assessed with bladder ultrasound and/or cystoscopy. 6. There is mild vague increased attenuation within the mesentery. Multiple nonspecific small mesenteric lymph nodes are also present. Tabby mesentery can be seen in mesenteric panniculitis, sclerosing mesenteritis, mesenteric edema, or less likely lymphoma. Clinical correlation is recommended. This is new since 2019. 7. 6 mm right lower lobe nodule on image 14, minimally increased in size since 05/16/2019. Recommend follow-up with repeat CT in 6 months. Dictated and Authenticated by: Arjun Capone MD. Ordering:OMARI Ramirez MD
[2021-08-21 07:38] LABS: COVID-19 PCR Negative (Negative)
[2021-08-21 07:53] LABS: Bilirubin Small (Negative); Blood Large (Negative); Clarity Cloudy (Clear); Glucose Negative (Negative); Ketones Trace mg/dL (Negative); Leukocyte Esterase Negative (Negative); Nitrite Negative (Negative); Specific Gravity 1.025 (1.005-1.025); Urobilinogen 0.2 EU/dL (Up TO 0.2); pH 5.5 (5-8)
[2021-08-21 08:00] LABS: Epithelial Cells Few HPF (Negative); RBC >50 HPF (0-2)
[2021-08-21 08:01] LABS: C & S Indicated? Yes; Crystals Negative HPF (Negative)
[2021-08-21] MEDS: Tamsulosin 0.4 MG CAPCR PO ×2 (10:10→19:37)
[2021-08-21] MEDS: Cholecalciferol (Vitamin D3) 400 UNIT TAB PO (10:10)
[2021-08-21] MEDS: Cholestyramine/Aspartame PKT 1 EACH PO ×2 (10:10→18:26)
[2021-08-21] MEDS: Bisacodyl 10 MG SUPP PR (10:10)
[2021-08-21] MEDS: Ascorbic Acid 500 MG TAB PO (10:10)
[2021-08-21] MEDS: Metoprolol CR 50 MG TABCR PO (10:10)
--- NOTE | 2021-08-21 11:06 | INITIAL_ITS ---
- If Service Date Differs Date of service: 08/21/21 Time of Service: 11:11 Care Management Initial Assess REASON FOR HOSPITALIZATION:: Diarrhea, near syncope PAST MEDICAL HISTORY/PAST SURGICAL HISTORY:: Medical History. Atrial flutter (03/29/13). 08/20/11 [facility]. BPH (benign prostatic hyperplasia). CKD (chronic kidney disease). Decreased hearing. Diverticula of colon. Gross hematuria. Hypothyroidism. Pt. states he is unaware of this condition. Ptosis of eyebrow. Seasonal allergies. Surgical History. Extraction of cataract (08/08/13). History of colonoscopy. Repair of inguinal hernia. RIGHT PREVIOUS FUNCTIONAL STATUS/SOCIAL/FAMILY SUPPORTS:: Alban lives in [place] alone with his two cats. His girlfriend, Sol had a severe stroke in April 2021, which resulted in right sided paralysis. She is currently living at a SNF, which he believes will be permanent. His two sons, Tay and Ronaldo, live in [place], [place]. He has a daughter who lives in [place], but he is not close to her. He has 7 grand children. He is retired and independent at baseline, and still drives and square dances regularly. CURRENT FUNCTIONAL STATUS:: Alban was sitting up in bed when CM met with him. He reported that he was in the ED all night, from about 9pm until 6am, when he was admitted to the M/S floor. Per report, he will be given an emema, as MD feels he is obstupated, based on the result of his abdominal CT. He will have an echo today as well. CM will continue to follow. ADVANCE DIRECTIVES:: Not on file. Has patient been provided with info about the portal/API?: Yes Did the patient sign up for the portal?: No CODE STATUS:: Full Code INSURANCE COVERAGE / FINANCIAL ISSUES:: [employer] CURRENT HOME/COMMUNITY SERVICES/EQUIPMENT:: No current services or equipment. PRIMARY CARE PHYSICIAN:: Any Gibbons POTENTIAL DISCHARGE NEEDS:: Evaluations for further needs, follow up appointments. PATIENT/FAMILY EDUCATION NEEDS:: Review discharge instructions regarding acti vity levels and medications, discussion of self care needs including ask me three. ANTICIPATED BARRIERS TO DISCHARGE:: None identified at this time. TRANSPORTATION:: Via private vehicle by [facility], coordinated by CM. PLAN:: Anticipate Alban will return home when medically cleared. He will likely require RCT to drive him home via private vehicle when ready. He will follow up with his PCP and discharge plan of care. CM will continue to follow.
[2021-08-21 14:33] LABS: HCT 39.6 % (40.0-50.0); HGB 12.5 g/dL (13.5-17.5)
[2021-08-21] MEDS: Lactated Ringers 1,000 ML 100 ML IV (14:41)
--- NOTE | 2021-08-21 14:47 | DI.US_ITS ---
APPROVED REPORT EXAM: Comprehensive 2D, Doppler, and color-flow Echocardiogram Patient Location: In-Patient Room/Bed: 229 Indications: Near syncope, A flutter Other Information Study Quality: Fair. Technically limited study due to body habitus, inability to position patient. Conclusion Normal left ventricular wall thickness and chamber size. Estimated ejection fraction is 55 to 60%. There are no segmental wall motion abnormalities Normal right ventricular size and systolic function Both atria are normal in size Trileaflet aortic valve without stenosis or regurgitation Normal mitral valve with trace regurgitation Normal tricuspid valve with mild regurgitation and normal estimated right ventricular systolic pressu re Mildly dilated ascending aorta measuring 3.56 cm Wall motion Left Ventricle The left ventricle is normal size. The left ventricular systolic function is normal. The left ventric ular ejection fraction is within the normal range. There is normal left ventricular wall thickness. T here is normal LV segmental wall motion. There is no ventricular septal defect visualized. LVEF is 55 -60%. Right Ventricle The right ventricle is normal size. The right ventricular systolic function is normal. The RVSP is 29 .3 mmHg. Atria The left atrium size is normal. The right atrium size is normal. The interatrial septum is intact wit h no evidence for an atrial septal defect. Aortic Valve The aortic valve is normal in structure. Aortic valve is trileaflet. There is no aortic valvular sten osis. No aortic regurgitation is present. Mitral Valve The mitral valve is normal in structure. No evidence of mitral valve stenosis. Trace mitral regurgita tion. Tricuspid Valve The tricuspid valve is normal in structure. There is no tricuspid valve stenosis. Mild tricuspid regu rgitation. Pulmonic Valve The pulmonary valve is normal in structure. There is no pulmonic valvular stenosis. Trace pulmonic re gurgitation. Great Vessels The aortic root is normal in size. The ascending aorta is mildly dilated.3.56 cm Aortic arch is not w ell visualized. IVC is normal in size and collapses >50% with inspiration. Pericardium There is no pericardial effusion. 2D Dimensions IVSD d PLAX 0.92 cm M: 0.6-1.2 LV Vol A2C d MOD 82.9 mL LVPW d PLAX 0.91 cm M: 0.6 - 1.2 LV Vol A4C d MOD 78.1 mL LVID d PLAX 4.03 cm M: 4.2 - 5.8 LA vol/ BSA A2C s A-L 21.7 mL/m2 LVDs 2.80 cm M: 2.5 - 4.0 LA vol/ BSA A4C s A-L 29.0 mL/m2 Ao Root d 3.42 cm M: 3.1 - 3.7 LA Vol/ BSA Biplane s A-L 28.3 mL/m2 RA Area A4C 17.46 cm2 LA Area A4C s MOD 21.32 cm2 RA Vol/ BSA A4C s A-L 20.4 mL/m2 LA Area A2C s MOD 16.35 cm2 Ao Asc Diam d 3.56 cm M: 2.6 - 3.4 LV EF A4C MOD 55.4 % LV EF Teichholz 57.5 % LV EF A2C MOD 55.6 % LVEF ([place]'s) 55.31 % M: 52 - 72 LV EF Biplane MOD 55.3 % LV Volume 63.64 mL M: 62 - 150 SV 47.40 mL LV Volume Index 30.89 mL/m2 M: 34 - 74 SV Index 23.00 mL/m2 LV Vol Biplane MOD 85.7 mL FS 29.80 % M-Mode TAPSE 1.99 cm (M/F) >1.7 LV Diastology MV E' medial 0.120 (>0.07 m/s) MV E Vmax 0.98 (0.4-1.3 m/s) LV E/e MED 8.15 (<14) MV E' lateral 0.166 (>0.1 m/s) LV E/e LAT 5.85 (<14) MV E/E' medial 8.16 MV E/E' lateral 5.88 Aortic Valve LVOT Area 3.45 cm2 AoV Area Vmax 2.43 cm2 LVOT Vmax 0.75 m/s AoV Area/ BSA (Vmax) 1.18 cm2/m2 LVOT Mean Tommy. 0.50 m/s JUDITH Mean Tommy. 2.09 cm2 LVOT Peak Grad 2.2 mmHg JUDITH Mean Tommy. Index 1.01 cm2/m2 LVOT Mean Grad 1.1 mmHg LVOT VTI 0.135 m LVOT Diam s 2.05 cm AoV Vmax 1.06 m/s Velocity Ratio 0.70 AoV Mean Tommy. 0.83 m/s AoV Peak Grad 4.5 mmHg LVOT SV 46.55 mL AoV Mean Grad 2.9 mmHg AoV VTI 0.196 m AoV Area VTI 2.38 cm2 AoV Area/ BSA (VTI) 1.15 cm/m2 Mitral Valve MV DT 176 (160-240 msec) MV PHT 51 msec MV Area PHT 4.30 cm2 MV VTI 0.206 m MV Area VTI 2.26 (4.0-6.0 cm2) Pulmonary Valve PV Vmax 0.84 (0.5-1.5 m/s) RVOT Peak Gr. 1.24 mmHg PV Peak Grad 2.8 mmHg RVOT Mean Gr. 0.60 mmHg PV Mean Grad 1.5 mmHg RVOT VTI 0.111 m PV VTI 0.163 m RVOT Vmax 0.56 m/s Tricuspid Valve TR Peak Grad 26.2 mmHg TR Vmax 2.56 m/s RA Pressure 3.00 mmHg RVSP (TR) 29.3 mmHg
[2021-08-21 19:47] LABS: Campylobacter PCR Negative (Negative); Salmonella PCR Negative (Negative); Shiga Toxin PCR Negative (Negative); Shigella/Enteroinvasive Ecoli Negative (Negative)
[2021-08-22] VITALS (8 sets, daily range): BP systolic 106–123; BP diastolic 67–77; PULSE 80–100; RESP 16–19; TEMP 35.8–37; O2SAT 96–99
[2021-08-22] MEDS: Lactated Ringers 1,000 ML 100 ML IV (01:34)
[2021-08-22 07:09] LABS: Abs Immature Grans 0.03 10^3/uL (0.0-0.06); Absolute Basophil Count 0.03 10^3/uL (0.0-0.2); Absolute Eosinophil Count 3.67 10^3/uL (0.0-0.7); Absolute Neutrophil Count 6.84 10^3/uL (1.2-6.7); Basophils % 0.2; Eosinophils % 28.9; HCT 35.9 % (40.0-50.0); HGB 11.6 g/dL (13.5-17.5); Immature Grans % 0.2; Lymphocytes % 9.9; MCH 26.9 pg (27.0-33.0); MCHC 32.3 % (32.0-36.0); MCV 83.3 fL (80-95); MPV 10.4 fL (8.0-11.0); Monocytes % 6.9; Neutrophils % 53.9; Nucleated RBC 0 %; Platelet Count 216 10^3/uL (130-400); RBC 4.31 10^6/uL (4.36-5.78); RDW 14.9 % (11.8-14.1); RDW-SD 45.6 fL; WBC 12.69 10^3/uL (4.4-10.8)
[2021-08-22 07:19] LABS: Anion Gap 6.9 mmol/L (3-11); BUN 17 mg/dL (7-18); CO2 24.1 mmol/L (21.0-32.0); CREATININE 1.3 mg/dL (0.70-1.30); Chloride 110 mmol/L (98-107); Estimated GFR 53.39 (mL/min/1.73m2); Glucose 87 mg/dL (74-106); Magnesium 1.6 mg/dL (1.8-2.4); Potassium 3.8 mmol/L (3.5-5.1); Sodium 141 mmol/L (136-145)
[2021-08-22 07:33] LABS: Absolute Lymphocyte Count 1.26 10^3/uL (1.2-3.4); Absolute Monocyte Count 0.88 10^3/uL (0.1-0.8)
[2021-08-22 08:13] LABS: Diff Comment Diff Reviewed; RBC Morphology Normal
[2021-08-22] MEDS: Tamsulosin 0.4 MG CAPCR PO ×2 (08:27→19:20)
[2021-08-22] MEDS: Cholecalciferol (Vitamin D3) 400 UNIT TAB PO (08:27)
[2021-08-22] MEDS: Ascorbic Acid 500 MG TAB PO (08:27)
[2021-08-22] MEDS: Metoprolol CR 50 MG TABCR PO (08:27)
[2021-08-22] MEDS: MAGNESIUM SULFATE 4 GM/100 ML BAG IVPB (09:46)
[2021-08-22] MEDS: Cholestyramine/Aspartame PKT 1 EACH PO ×2 (09:46→19:20)
--- NOTE | 2021-08-22 15:39 | DSE_ITS ---
Date of service: 08/22/21 Time of Service: 15:39 DS: Diagnosis Discharge Diagnosis (1) Near syncope: Start date: 08/22/21 Start time: 15:39 Status: Resolved Asessment and Plan: Suspect vasovagal event, will apply 30 day event recorder to r/o any arrythmia, otherwise no reason for syncopal event. Patient is ready for discharge tolerating solid diet. Likely in setting of diarrhea follow up with PCP as outpatient, call wednesday to make appt for 1-2 weeks. (2) Diarrhea: Start date: 08/22/21 Start time: 15:53 Status: Resolved Asessment and Plan: No longer having diarrhea all stool studies negative imodium as needed for diarrhea. (3) Atrial flutter: Start date: 08/22/21 Start time: 15:54 Status: Acute Asessment and Plan: SR at this time, rate controlled, resume home lopressor dosing Conclusion Normal left ventricular wall thickness and chamber size. Estimated ejection fraction is 55 to 60%. There are no segmental wall motion abnormalities Normal right ventricular size and systolic function Both atria are normal in size Trileaflet aortic valve without stenosis or regurgitation Normal mitral valve with trace regurgitation Normal tricuspid valve with mild regurgitation and normal estimated right ventricular systolic pressure Mildly dilated ascending aorta measuring 3.56 cm (4) Blood in stool: Start date: 08/22/21 Start time: 15:55 Status: Resolved Asessment and Plan: No blood in stool at this time or since admission, diarrhea resolved If this continues will need to follow up with outpatient PCP and surgery, he is on pradaxa, not currently on GI protection will add omeprazole discussed with Dr. Manzanares Discharge Plan Disposition Patient Disposition: HOME Condition: Stable Discharge Details Reason For Visit: Diarrhea,Near Syncope Admit Date/Time: 08/21/21 05:38 Admit Provider: Ashley Perez Attending Provider: Ashley Perez Primary Care Provider: Any Gibbons Hospital Course Hospital Course: 76 year old male with PMHx of Atrial flutter on pradaxa and metoprolol, CKD, h ypothyroidism, BPH, admitted to [facility] from having a near syncopal episode while square dancing with fecal incontinence at the time. The patient was found to be in Atrial Flutter, rates were controlled. ACS was r/o and he was awaiting for his ride in the ED when he was noted to have several more explosive diarrheal BMs. He had a benign abdominal exam per ED providers. CT scan revealed 7. 6 mm right lower lobe nodule on image 14, minimally increased in size since 05/16/2019. Recommend follow-up with repeat CT in 6 months. Observation on hospitalist service was requested due to concerns for clinically significant diarrhea which was weakening the patient to the point of raising questions about safety of his ambulation. He was hemoccult positive. Since admission he has not had any more syncopal episodes, diarrhea has subsided and he has not had any hemocult positive stool. He is on pradaxa but no currently on GI protection. Will place him on omeprazole daily for GI protection, 30 day event recorder, follow up in 1-2 weeks with PCP. He can take imodium for diarrhea. All stool studies have been negative. Tolerating regular diet therefore being discharged home. Home Meds and New Rx's Prescriptions: New loperamide 2 mg Capsule 2 mg PO QLOOSE PRNQty: 30 RF: 0 omeprazole 20 mg capsule,delayed release(DR/EC) 20 mg PO DAILY Qty: 30 RF: 0 Continued ergocalciferol (vitamin D2) 400 UNIT tablet 400 units PO DAILY RF: 0 ascorbic acid (vitamin C) [Vitamin C] 500 MG tablet 500 mg PO DAILY RF: 0 ginkgo biloba 400 MG capsule 400 mg PO DAILY RF: 0 metoprolol succinate 50 MG tablet extended release 24 hr 1.5 tab PO DAILY Qty: 135 RF: 4 Pradaxa 150 MG capsule 150 mg PO BID Qty: 180 RF: 4 tamsulosin 0.4 mg capsule 0.4 mg PO BID RF: 0 Discharge Instructions Additional Instructions: Please contact your primary care physician to arrange follow-up. Call Wednesday. Follow up in the next 1-2 weeks Please drink plenty of fluids, take imodium as needed for diarrhea, all stool studies were negative Wear 30 day event recorder for 30 days to rule out any arrhythmias that may have caused your syncope. CT revealed 7. 6 mm right lower lobe nodule , minimally increased in size since 05/16/2019. Recommend follow-up with repeat CT in 6 months. Referrals: Any Gibbons [Primary Care Provider] - (Please call tomorrow to make a follow up appointment for 1-2 weeks) Activity:: Activity as Tolerated Equipment/Supplies:: cardiac event recorder Diet:: Low Sodium Discharge Orders Discharge Orders: Discharge Order (Routine); Ordered 08/22/21 Ordered By: Brooklyn Ye Other Ambulatory Orders: Cardiac Event Recorder (Routine) Timeframe: 1 Month Facility: [facility] - Location: Respiratory Therapy Ordered By: Brooklyn Ye DS: Summary Time Spent with Patient providing and/or coordinating discharge services: Less than 30 minutes Status at Discharge Functional status at discharge: independent ambulation Overall status at discharge: patient is back to baseline Mental Status: mental status grossly normal Speech and Movement: speech and movement normal Mood: congruent mood Affect: normal affect Exam Narrative Exam Narrative: General: Pleasant elderly male, A&Ox3, laying comfortably sitting in chair Neurological: A&Ox3, no focal deficits Psychiatric: appropriate speech pattern/content Skin: Visible skin intact HEENT: Atraumatic, normocephalic, EOMI, dry MM, clear oropharynx, no submandibular or cervical lymphadenopathy, no goiter or JVD Cardiovascular: SR , no m/r/g Lungs: LSC to all swenson Gastrointestinal: soft, nontender, nondistended; R large inguinal vs femoral hernia Extremities: no edema, clubbing or cyanosis Psych Mental Status: mental status grossly normal Speech and Movement: speech and movement normal Mood: congruent mood Affect: normal affect DS: Data Vitals/I&O Vitals and I&O: Vital Signs Temperature 36.8 C 08/22/21 12:14 Temperature Source Tympanic 08/22/21 12:14 Pulse 80 08/22/21 12:14 Pulse Rhythm Irregular 08/22/21 08:30 Pulse Strength Normal 08/21/21 04:09 Respiratory Rate 16 08/22/21 12:14 Respiratory Effort Non-Labored 08/22/21 08:30 Respiratory Depth Normal 08/22/21 08:30 Respiratory Pattern Normal 08/22/21 08:30 Blood Pressure 106/72 08/22/21 12:14 Blood Pressure Mean 91 08/21/21 04:09 Blood Pressure Position Sitting 08/21/21 04:09 Pulse Oximetry 99 08/22/21 12:14 Oxygen Delivery Method Room Air 08/22/21 12:14 Oxygen Flow Rate 0 08/22/21 12:14 Pain Level 0 08/22/21 12:14 Intake & Output 08/21/21 08/22/21 08/22/21 23:59 11:59 23:59 Intake Total 400 / 900 1150 / 1150 Output Total 1100 / 1500 400 / 1500 Balance 400 / 400 50 / -350 -400 / -350 Weight 89.6 kg Intake: IV 1000 / 1000 Oral 400 / 400 150 / 150 Output: Urine 1100 / 1500 400 / 1500 Other: Urine Color Yellow Yellow Pale Urine Appearance Clear Clear Clear Urine Odor None Normal Comment mixed with stool contaminated with liquid stools, looks villanueva in color. Stool Size Moderate Moderate Stool Characteristics Liquid Liquid Brown Voiding Methods Bedside Commode Urinal Urinal Data Completed and Pending Completed studies during hospitalization [Text1]: Exam(s) XR PORTABLE CHEST AP EXAM: XR PORTABLE CHEST AP CLINICAL HISTORY: crackles R lung TECHNIQUE: 2D digital imaging was performed of the chest. One image was obtained. An AP view was obtained. COMPARISON: CR CHEST 2 VIEWS PA,LAT from 08/20/2011 CR CHEST 2 VIEWS PA,LAT from 08/20/2011 FINDINGS: MEDIASTINUM: Normal. HEART: Normal. PULMONARY VASCULATURE: Normal. LUNGS: Clear. PLEURAL SPACE: No pleural effusion or pneumothorax. BONE:Within normal limits for the patient's age. OTHER FINDINGS:There is unchanged elevation of the right hemidiaphragm. IMPRESSION: No acute pulmonary findings. Exam(s) a CT:CT abdomen & pelvis wo Exam(s) CT ABDOMEN PELVIS WO EXAM: CT ABDOMEN PELVIS WO CLINICAL HISTORY: intractable diarrhea. TECHNIQUE: Imaging Protocol: Axial computed tomography images with coronal and sagittal reformatted images were created and reviewed. COMPARISON: CT CT ABDOMEN/ PELVIS CTA from 05/16/2019 FINDINGS: The examination is limited due to patient motion artifact. ABDOMEN: Lung Bases: Normal where visualized. There is a stable peripheral right lower lobe pulmonary nodule. Large hiatal hernia. Liver: Normal density. No measurable mass. Gallbladder and biliary tract: Cholelithiasis. No biliary ductal dilatation. Pancreas: Normal density, no abnormal calcifications or inflammatory process. Spleen: Normal. Kidneys: Normal size, contour and axis.No radiodense stones or obstructive uropathy. No masses seen. Adrenal glands: No mass is seen. Lymph nodes: Mildly prominent mesenteric lymph nodes. Abdominal Aorta: Abdominal portion non-dilated. Mild atherosclerosis. PELVIS: Bladder:Symmetric distention. Multiple bladder wall diverticula are noted. There is again seen a right inguinal hernia containing fat and a portion of the urinary bladder. This is unchanged compared to the prior examination. There is however mild thickening of the wall of the herniated urinary bladder with mild surrounding inflammation. Bowel: No obstruction or bowel wall thickening. No evidence of appendicitis. There is a large amount of stool in the rectum with mild wall thickening. Stercoral colitis cannot be excluded. There is diverticulosis seen in the s igmoid colon but no evidence of acute diverticulitis. There is fluid seen throughout the colon which can be seen with diarrheal illness. Peritoneal cavity: Mild increased attenuation in the mesentery with mildly prominent mesenteric lymph nodes. No free air. Reproductive organs: Mildly enlarged prostate gland. Bones: Within normal limits. Soft Tissues: Within normal limits. IMPRESSION: 1. Moderately large amount of stool in the rectum with mild rectal wall thickening which may reflect stercoral colitis. 2. Fluid seen within the colon and small bowel which can be seen with diarrheal illness. 3. Mild thickening of the wall of the herniated portion of the urinary bladder. An inflammatory infectious process should be considered. Neoplasm cannot be excluded. Bladder ultrasound or cystoscopy should be considered for further evaluation. 4. New increased attenuation in the mesentery with mildly prominent mesenteric lymph nodes. This can be seen with mesenteric panniculitis, edema or less likely neoplasm. IMPRESSION: 1. Moderate stool bolus at the rectum with mild rectal wall thickening. Correlate for fecal impaction and mild stercoral colitis. 2. Liquid stool in the colon and liquid contents in distal small bowel compatible with concurrent diarrheal illness. 3. Large hiatal hernia, increased since prior study. 4. Cholelithiasis. 5. Urinary bladder is distended with urine with trabeculated wall with multiple diverticula, similar to prior study. As previously, portion of the anterior bladder herniates into the a large right inguinal hernia. There is mild thickening of the urinary bladder wall anteriorly and at the point of herniation. Bladder can be better assessed with bladder ultrasound and/or cystoscopy. 6. There is mild vague increased attenuation within the mesentery. Multiple nonspecific small mesenteric lymph nodes are also present. Tabby mesentery can be seen in mesenteric panniculitis, sclerosing mesenteritis, mesenteric edema, or less likely lymphoma. Clinical correlation is recommended. This is new since 2019. 7. 6 mm right lower lobe nodule on image 14, minimally increased in size since 05/16/2019. Recommend follow-up with repeat CT in 6 months. Labs on day of discharge: Labs from last 24 hours 08/22/21 08/22/21 08/21/21 06:50 06:50 05:10 WBC 12.69 H RBC 4.31 L Hgb 11.6 L Hct 35.9 L MCV 83.3 MCH 26.9 L MCHC 32.3 RDW 14.9 H Plt Count 216 MPV 10.4 Immature Gran % 0.2 Neutrophils % 53.9 Lymphocytes % 9.9 Monocytes % 6.9 Eosinophils % 28.9 Basophils % 0.2 Nucleated RBC % 0 Absolute Neutrophils 6.84 H Absolute Lymphocytes 1.26 Absolute Monocytes 0.88 H Absolute Eosinophils 3.67 H Absolute Basophils 0.03 RBC Morphology Normal Sodium 141 Potassium 3.8 D Chloride 110 H Carbon Dioxide 24.1 Anion Gap 6.9 BUN 17 Creatinine 1.3 Estimated GFR/1.73 m2 53.39 Glucose 87 Calcium 8.0 L Magnesium 1.6 L Stool Description Stool Campylobacter PCR Negative Stool Salmonella PCR Negative Stool Shigella PCR Negative Stool Ova & Parasites Cryptosporidium/Giardia Shiga Toxin (PCR) Negative 08/21/21 08/21/21 05:10 05:10 WBC RBC Hgb Hct MCV MCH MCHC RDW Plt Count MPV Immature Gran % Neutrophils % Lymphocytes % Monocytes % Eosinophils % Basophils % Nucleated RBC % Absolute Neutrophils Absolute Lymphocytes Absolute Monocytes Absolute Eosinophils Absolute Basophils RBC Morphology Sodium Potassium Chloride Carbon Dioxide Anion Gap BUN Creatinine Estimated GFR/1.73 m2 Glucose Calcium Magnesium Stool Description Not Applicable Stool Campylobacter PCR Stool Salmonella PCR Stool Shigella PCR Stool Ova & Parasites SEE BELOW Cryptosporidium/Giardia SEE BELOW Shiga Toxin (PCR) Preliminary micro results at discharge 08/21/21 07:10 Urine Culture - Preliminary Urine - Reflex from Ua Gram Negative [facility] Medical History (Updated 08/22/21 @ 15:57 by Brooklyn Ye NP) Atrial flutter (03/29/13) 08/20/11 [facility] BPH (benign prostatic hyperplasia) CKD (chronic kidney disease) Decreased hearing Diverticula of colon Gross hematuria Hypothyroidism Pt. states he is unaware of this condition Ptosis of eyebrow Seasonal allergies Surgical History Extraction of cataract (08/08/13) History of colonoscopy Repair of inguinal hernia RIGHT Family History Mother Diabetes Dementia Father No problems noted. Brother No problems noted. Grandfather No problems noted. Grandfather No problems noted. Grandmother No problems noted. Grandmother No problems noted. Brother , Suicide at age 46. No problems noted. Social History Smoking/Tobacco Use Status: Never Smoking risk assessment performed?: Yes Alcohol Intake: never Drug use: Never Substance use type: does not use Do you feel safe at home: Yes Do you feel safe in your relationship?: Yes
--- NOTE | 2021-08-22 17:54 | PDOC.CMDIS ---
- If Service Date Differs Date of service: 08/22/21 Time of Service: 17:55 LACE Index Scoring Tool - Questions: Length of Stay (in days): 1 Acuity (Admit via E.D.?): Yes Comorbidities: Liver or Renal Disease E.D. Visits: 1 - Answers: Total Score: 10 Risk of Readmission: High Risk Care Management Discharge Reason for Hospitalization: Diarrhea, near syncope Discharge Plan: Alban returned home today with no new services. His son drove him home via private vehicle. He will follow up with his PCP and discharge plan of care. He is happy to be going home. Patient/Family Education Needs: Review discharge instructions regarding activity levels and medications, discussion of self care needs including ask me three.
--- NOTE | 2021-09-25 09:32 | W.CARDEVENT ---
Date of service: 09/25/21 Time of Service: 09:32 Cardiac Event Recorder Referring Provider:: Ashley Perez Indications:: Syncope Cardiac Event Note: This is a 30 day event monitor reportedly ordered for syncope Rhythm throughout was atrial flutter/fibrillation Average heart rate was 84. Maximum was 130 Several pauses were noted during sleep ranging in length from 3 to 4.7 seconds There were rare PVCs No patient symptoms were reported
== END 2021-08-22 19:55 | disposition home or self-care (01) ==
LOC: ER 08-21 06:03 → MS 08-21 08:09
PROVIDERS: Student in an Organized Health Care Education/Training Program; Admitting Provider Internal Medicine; Emergency Provider Student in an Organized Health Care Education/Training Program; PCP Physician Assistant; Visit Provider Internal Medicine
DX: R55 Syncope and collapse (principal); K92.1 Melena; R19.7 Diarrhea, unspecified; I48.92 Unspecified atrial flutter; D72.829 Elevated white blood cell count, unspecified; Z79.899 Other long term (current) drug therapy; Z79.01 Long term (current) use of anticoagulants; N18.9 Chronic kidney disease, unspecified; R59.0 Localized enlarged lymph nodes; Z20.822 Contact with and (suspected) exposure to COVID-19; E03.9 Hypothyroidism, unspecified; N40.0 Benign prostatic hyperplasia without lower urinary tract symptoms
CPT/HCPCS: 36415; 80048; 80053; 87329; 87493; 87505; 87635; 93005; 93270; 93306; 96361; 96374; 99285; 71045; 74176; 81003; 81015; 83735; 84439; 84443; 84484; 85014; 85018; 85025; 87086; 87177; 93010; 99217; 99220; G0378; J2405; J3475; J3490

== ENCOUNTER 2021-08-23 19:55 | Emergency (ER) | payer MEDICARE, OTHER, SELFPAY ==
[2021-08-23 20:06] VITALS: BP 121/75; PULSE 90; RESP 20; TEMP 36.4; O2SAT 98
--- NOTE | 2021-08-23 20:14 | W.ED.GENAD ---
Discharge Plan Disposition Patient Disposition: HOME Condition: Good Discharge Details Clinical Impression: Diarrhea Primary Care Provider: Any Gibbons ED Provider: Vijay Latham Home Meds and New Rx's Prescriptions: Continued ergocalciferol (vitamin D2) 400 UNIT tablet 400 units PO DAILY RF: 0 ascorbic acid (vitamin C) [Vitamin C] 500 MG tablet 500 mg PO DAILY RF: 0 ginkgo biloba 400 MG capsule 400 mg PO DAILY RF: 0 metoprolol succinate 50 MG tablet extended release 24 hr 1.5 tab PO DAILY Qty: 135 RF: 4 Pradaxa 150 MG capsule 150 mg PO BID Qty: 180 RF: 4 tamsulosin 0.4 mg capsule 0.4 mg PO BID RF: 0 loperamide 2 mg Capsule 2 mg PO QLOOSE PRNQty: 30 RF: 0 omeprazole 20 mg capsule,delayed release(DR/EC) 20 mg PO DAILY Qty: 30 RF: 0 Discharge Instructions Instructions: Acute Diarrhea (ED) Additional Instructions: At this time the loperamide (Imodium) is critical for the improvement of your diarrhea. The prescription is your [facility] in [place]. Please take this as directed. If you have continued diarrhea even on this medication you may require further evaluation by mobility architect. If you notice any worsening of your symptoms, or any new symptoms such as vomiting, diarrhea, fever, chills, shortness of breath, chest pain, numbness, weakness, or fainting , please return immediately to the emergency department for reevaluation. Please follow up with your primary care provider as soon as possible for reassessment and reevaluation. As always, it was a pleasure participating in your medical care today. Referrals: Any Gibbons [Primary Care Provider] - Medical Decision Making 76-year-old male with a past medical history of anticoagulation for A. fib/flutter, on Pradaxa, and metoprolol, who was recently here and admitted and subsequently discharged for mild tachycardia, diarrhea which is Hemoccult positive. The patient was admitted his diarrhea completely resolved and was no longer Hemoccult positive. He went home and his diarrhea remained associated until early this morning, when it returned. Unfortunately he was not able to fill any of his prescriptions that were sent to his pharmacy in [place]. He states he was not aware of these prescriptions. He denies any abdominal pain, shortness of breath, lightheadedness, syncope or near syncope like he had on his previous admission. No other complaints at this time, no hematochezia melena or acholic stool. No other modifying factors. Son is at bedside. Physical exam demonstrates a well-appearing male, no tachycardia, no hypotension. Mucous membranes are moist. Abdomen is notably nontender. Symptoms are consistent with continued noninfectious diarrhea. Hemoccult negative. No clinical hematochezia. No indication for repeat work-up at this time. Review of the patient's stool studies that I ordered a few days ago have all returned negative for any evidence of infectious etiology. At this time I suspect that his diarrhea is secondary to not being able to take his Imodium. We will give a dose of Imodium here, and 4 mg to go home with, as well as a dose of omeprazole here. Recommended to the patient son that he picker operator his prescriptions tomorrow morning. With no abdominal tenderness, signs of dehydration, or signs of hemodynamic compromise I feel the patient is appropriate for discharge at this time. Discussed red flags which to return, including the need for potential further colonic evaluation by mobility architect if diarrhea continues. Note will be copied to his primary care provider. I have extensively reviewed the treatment plan and discharge instructions with the patient and their family. I have addressed all patient concerns at this time. The patient and family was made aware of what symptoms to monitor for that would warrant a return to the emergency department. Discussed the plan with the patient and family, they demonstrate verbal understanding and agreement with our assessment and plan at this time. The documentation in this chart was dictated using [employer] dictation software. Please excuse any dictation errors. HPI General Date/Time Provider Initiated Documentation: 08/23/21 20:02. HPI Narrative: 76-year-old male with a past medical history of anticoagulation for A. fib/flutter, on Pradaxa, and metoprolol, who was recently here and admitted and subsequently discharged for mild tachycardia, diarrhea which is Hemoccult positive. The patient was admitted his diarrhea completely resolved and was no longer Hemoccult positive. He went home and his diarrhea remained associated until early this morning, when it returned. Unfortunately he was not able to fill any of his prescriptions that were sent to his pharmacy in [place]. He states he was not aware of these prescriptions. He denies any abdominal pain, shortness of breath, lightheadedness, syncope or near syncope like he had on his previous admission. No other complaints at this time, no hematochezia melena or acholic stool. No other modifying factors. Son is at bedside. Related Data Home Medications Medication Instructions Recorded Confirmed ascorbic acid (vitamin C) [Vitamin 500 mg PO DAILY 04/22/13 08/23/21 C] ergocalciferol (vitamin D2) 400 units PO DAILY tab-cap 04/22/13 08/23/21 ginkgo biloba 400 mg PO DAILY 04/22/13 08/23/21 Pradaxa 150 mg PO BID #180 tab-cap 09/18/13 08/23/21 metoprolol succinate 1.5 tab PO DAILY #135 tab-cap 09/18/13 08/23/21 tamsulosin 0.4 mg PO BID 08/21/21 08/23/21 loperamide 2 mg PO QLOOSE PRN #30 cap 08/22/21 08/23/21 omeprazole 20 mg PO DAILY #30 cap 08/22/21 08/23/21 Previous Rx's Medication Instructions Recorded loperamide 2 mg PO QLOOSE PRN #30 cap 08/22/21 omeprazole 20 mg PO DAILY #30 cap 08/22/21 Allergies Allergy/AdvReac Type Severity Reaction Status Date / Time No Known Allergies Allergy Verified 08/23/21 20:10 General Stated Complaint: Nausea/Vomit/Diar JOCY: 3 Review of Systems All systems reviewed & are unremarkable except as noted in HPI and below PFSH Medical History Atrial flutter (03/29/13) 08/20/11 [facility] BPH (benign prostatic hyperplasia) CKD (chronic kidney disease) Decreased hearing Diverticula of colon Gross hematuria Hypothyroidism Pt. states he is unaware of this condition Ptosis of eyebrow Seasonal allergies Surgical History Extraction of cataract (08/08/13) History of colonoscopy Repair of inguinal hernia RIGHT Family History Mother Diabetes Dementia Father No problems noted. Brother No problems noted. Grandfather No problems noted. Grandfather No problems noted. Grandmother No problems noted. Grandmother No problems noted. Brother , Suicide at age 46. No problems noted. Social History Smoking/Tobacco Use Status: Never Smoking risk assessment performed?: Yes Alcohol Intake: never Drug use: Never Substance use type: does not use Do you feel safe at home: Yes Do you feel safe in your relationship?: Yes Exam Narrative Exam Narrative: 1.Const: Well-nourished, Well-developed, appearing stated age 2.Eyes: PERRL, no conjunctival injection, and symmetrical lids. 3.ENT: Atraumatic external nose and ears. Moist MM. Neck: Symmetric, trachea midline, No thyromegaly. 4.CVS: +S1/S2, No murmurs or gallops. Peripheral pulses 2+ and equal in all extremities. Brisk capillary refill in all extremities. 5.RESP: Unlabored respiratory effort. Clear to auscultation bilaterally. No wheezes rales or rhonchi 6.GI: Soft, Nontender/Nondistended, No hepatosplenomegaly. No guarding or rebound. 7.MSK: Normocephalic/Atraumatic, Extremities w/o deformity or ttp No cyanosis or clubbing, Normal movement of all extremities 8.Skin: Warm, Dry. No rashes or lesions. 9.Neuro: barge loader II-XII grossly intact. Sensation grossly intact, no focal neurologic deficits. 10.Psych: (AAO) x3. Appropriate mood and affect Course Vital Signs Vital signs: Vital Signs Temperature 36.4 C L 08/23/21 20:06 Pulse 90 08/23/21 20:06 Respiratory Rate 20 08/23/21 20:06 Blood Pressure 121/75 08/23/21 20:06 Pulse Oximetry 98 08/23/21 20:06 Temperature 36.4 C L 08/23/21 20:06 Temperature Source Temporal Artery Scan 08/23/21 20:06 Pulse 90 08/23/21 20:06 Respiratory Rate 20 08/23/21 20:06 Blood Pressure 121/75 08/23/21 20:06 Blood Pressure Position Sitting 08/23/21 20:06 Pulse Oximetry 98 08/23/21 20:06 Oxygen Delivery Method Room Air 08/23/21 20:06 Oxygen Flow Rate 0 08/23/21 20:06
[2021-08-23] MEDS: Omeprazole 20 MG CAPCR PO (20:20)
[2021-08-23] MEDS: Loperamide 2 MG CAP 8 MG PO (20:20)
== END 2021-08-23 20:25 | disposition home or self-care (01) ==
PROVIDERS: Emergency Provider Student in an Organized Health Care Education/Training Program; PCP Physician Assistant
DX: R19.7 Diarrhea, unspecified (principal)
CPT/HCPCS: 99282

== ENCOUNTER → 2021-09-08 14:20 | Outpatient (BNVA) | payer MEDICARE, OTHER, SELFPAY | PROVIDERS: PCP Physician Assistant; Referring Provider Physician Assistant; Visit Provider Nurse Practitioner Gerontology | DX: R31.0 Gross hematuria (principal) | CPT/HCPCS: 81003; 99213 ==

== ENCOUNTER 2021-09-25 09:32 | Outpatient (CLI) | payer MEDICARE, OTHER, SELFPAY | END 2021-09-25 09:33 | LOC: CARDO 09-26 12:44 | PROVIDERS: PCP Physician Assistant; Referring Provider Internal Medicine; Visit Provider Internal Medicine Cardiovascular Disease | DX: R55 Syncope and collapse (principal); I48.91 Unspecified atrial fibrillation; I48.92 Unspecified atrial flutter; I49.5 Sick sinus syndrome | CPT/HCPCS: 93272 ==

== ENCOUNTER 2021-10-03 03:16 | Outpatient (CLI) | payer MEDICARE, OTHER, SELFPAY ==
[2021-10-03 14:08] LABS: Source Nasal/Nares
[2021-10-03 17:40] LABS: COVID-19 PCR Negative (Negative)
== END 2021-10-03 03:17 | disposition home or self-care (01) ==
LOC: LBO 03:16
PROVIDERS: PCP Physician Assistant; Visit Provider Nurse Practitioner Gerontology
DX: Z20.822 Contact with and (suspected) exposure to COVID-19 (principal); Z01.818 Encounter for other preprocedural examination
CPT/HCPCS: 87635

== ENCOUNTER 2021-10-06 07:07 | Day surgery (SDC) | payer MEDICARE, OTHER, SELFPAY ==
--- NOTE | 2021-10-05 17:00 | W.ANESPRE ---
General Info Date of Service Date Performed: 10/06/21 Height: 5 ft 9 in Weight: 90.718 kg Body Mass Index (BMI): 29.5 Surgical Procedure: Operation Date: 10/06/21 08:40 Proposed Procedures Side Surgeon p Cystoscopy/Retrograde Bilateral Chidi Mahan MD s Transurethral Resection Bladder Tumor possible Chidi Mahan MD Meds Allergies and Home Medications Allergies Allergy/AdvReac Type Severity Reaction Status Date / Time No Known Allergies Allergy Verified 10/03/21 12:28 Home Medication Medication Instructions Recorded ascorbic acid (vitamin C) [Vitamin 500 mg PO DAILY 04/22/13 C] ergocalciferol (vitamin D2) 400 units PO DAILY tab-cap 04/22/13 ginkgo biloba 400 mg PO DAILY 04/22/13 Pradaxa 150 mg PO BID #180 tab-cap 09/18/13 metoprolol succinate 1.5 tab PO DAILY #135 tab-cap 09/18/13 tamsulosin 0.4 mg PO BID 08/21/21 loperamide 2 mg PO QLOOSE PRN #30 cap 08/22/21 omeprazole 20 mg PO DAILY #30 cap 08/22/21 cholecalciferol (vitamin D3) 50 50 mcg PO DAILY 09/03/21 mcg (2,000 unit) capsule fexofenadine 60 mg tablet 60 mg PO DAILY tab 09/03/21 Current Visit Medications: Current Medications Generic Name Dose Route Start Last Admin Trade Name Freq PRN Reason Stop Dose Admin Ringer's Solution 1,000 mls @ 80 mls/hr 10/06/21 06:00 IV 11/02/21 23:59 INFUSION [place] Cefazolin Sodium 2,000 mg/ 100 mls @ 200 mls/hr 10/06/21 06:00 Sodium Chloride IVPB 10/06/21 16:00 PREOP [place] IV Miscellaneous Supplies 1 each 10/06/21 06:00 Iv Access IV 11/02/21 23:59 DIRECTED [place] Sodium Chloride 0 ml 10/06/21 06:00 Normal Saline Flush 10 Ml Syr IV 11/02/21 23:59 PRN PRN Sodium Chloride 0 ml 10/06/21 06:00 Normal Saline 10 Ml Vial IJ 11/02/21 23:59 DIRECTED PRN Sterile Water 0 ml 10/06/21 06:00 Water,Injection,Sterile 10 Ml Vial IJ 11/02/21 23:59 DIRECTED PRN PFSH Active Problems Active Problems: Problem Status Onset Code Diarrhea R19.7 Discharge planning issues Z02.9 DVT prophylaxis Z29.9 Hypothyroidism E03.9 Near syncope R55 Blood in stool K92.1 Lightheadedness R42 Diarrhea R19.7 Hematochezia K92.1 Gross hematuria R31.0 Diverticula of colon K57.30 Pneumonia, organism unspecified J18.9 Benign prostatic hyperplasia with urinary obstruction 10/28/12 N40.1, N13.8 Atrial flutter 03/29/13 I48.92 Medical History Medical History Atrial flutter (03/29/13) 08/20/11 [facility] BPH (benign prostatic hyperplasia) CKD (chronic kidney disease) Decreased hearing Diverticula of colon Gross hematuria Hypothyroidism Pt. states he is unaware of this condition Ptosis of eyebrow Seasonal allergies Surgical History Surgical History Extraction of cataract (08/08/13) History of colonoscopy Repair of inguinal hernia RIGHT Tobacco Smoking/Tobacco Use Status: Never Alcohol Alcohol Intake: never Substance Use Substance use: Never Substance use type: does not use Vital Signs and Lab Results Lab Results Blood Type / Crossmatch: No Data to Display Complete Blood Count: No Data to Display Complete Metabolic Panel: No Data to Display Liver Function Panel: No Data to Display Coagulation Panel: No Data to Display Cardiac Panel: No Data to Display Arterial Blood Gas: No Data to Display Venous Blood Gas: No Data to Display Pancreas Panel: No Data to Display Thyroid Panel: No Data to Display Infectious Disease: Coronavirus (COVID-19)(PCR) Negative (Negative) 10/03/21 11:24 10/03/21 Coronavirus 2019 Source Nasal/Nares 10/03/21 11:24 10/03/21 Blood Cultures: No Data to Display Toxicology Panel: No Data to Display Imaging and Studies Imaging and Studies EKG Summary: 2019: aflutter. Echocardiogram Summary: 2020: LVEF 55-60%, trace MR, mild TR, mild dilated ascending Ao 3.56 cm. Anesthesia Assessment and Plan Anesthesia History Personal History: No History of Anesthesia Complications Family History: No Family History of Anesthesia Complications Exercise Tolerance Exercise Tolerance: Metabolic Equivalents>4 Pertinent Negatives Pertinent Negatives: No Symptoms of GERD, No Major Pulmonary Symptoms or Complaints and No History of CVA/TIA Cardiac & Pulmonary Exam Cardiac Exam: Normal S1/S2 Heart Sounds Pulmonary Exam: Clear Bilateral Breath Sounds Implantable Cardiac Device Does patient have a Pacemaker or an ICD?: No Airway Exam Known Difficult Airway: No Mallampati Class: 2 Mouth Opening: Normal (> 3cm) Thyromental Distance: Greater than 3 cm Neck Range of Motion: Full ROM Neck Circumference: Normal Teeth Condition: Removable Dentures/Plates Upper, Removable Dentures/Plates Lower and Edentulous ASA Classification ASA Score: ASA 3 Emergency Case?: No NPO Status NPO Status: NPO Clears >2 hours, Solids >8 hours Anesthesia Plan Resuscitation Status: Full Code Anesthesia Technique: General Anesthesia Airway Planned: Natural Airway Monitors Used: Standard Monitors Preoperative Comments:: 76 yo male with gross hematuria for cysto Sig PMHx: GERD (omeprazole), aflut (metoprolol).
[2021-10-06] VITALS (8 sets, daily range): BP systolic 69–131; BP diastolic 42–85; PULSE 53–111; RESP 14–22; TEMP 36–36.5; O2SAT 96–100; BMI 29.5
[2021-10-06] MEDS: Lactated Ringers 1,000 ML 80 ML IV (07:52)
--- NOTE | 2021-10-06 09:20 | W.PM.HP.N ---
Date of service: 10/06/21 Time of Service: 09:20 Assessment and Plan Assessment and plan (1) Gross hematuria: Status: Acute Assessment and plan: We will perform cystoscopy and bilateral retrograde pyelogram to complete his hematuria workup. History of Present Illness History of Present Illness Chief Complaint: Gross hematuria Narrative: This is a 76-year-old gentleman who has a history of gross, painless hematuria. Evaluated with a renal ultrasound and noncontrast CT which showed some thickening of his bladder wall but no solid renal masses or hydronephrosis. He presents now for cystoscopy with retrograde pyelogram to complete his hematuria work-up. Since his initial presentation, he has not seen any additional gross hematuria. Review of Systems Constitutional Comments: No fevers or chills No vision change or dysphasia Hypothyroidism. No diabetes No shortness of breath, cough or hemoptysis Atrial flutter. No chest pain No nausea, vomiting, hepatitis, ulcers, jaundice No seizures, strokes or peripheral neuropathy No bleeding disorders or anemia No gout PFSH Medical History Atrial flutter (03/29/13) 08/20/11 [facility] BPH (benign prostatic hyperplasia) CKD (chronic kidney disease) Decreased hearing Diverticula of colon Gross hematuria Hypothyroidism Pt. states he is unaware of this condition Ptosis of eyebrow Seasonal allergies Surgical History Extraction of cataract (08/08/13) History of colonoscopy Repair of inguinal hernia RIGHT Family History Mother Diabetes Dementia Father No problems noted. Brother No problems noted. Grandfather No problems noted. Grandfather No problems noted. Grandmother No problems noted. Grandmother No problems noted. Brother , Suicide at age 46. No problems noted. Social History Smoking/Tobacco Use Status: Never Smoking risk assessment performed?: Yes Alcohol Intake: never Drug use: Never Substance use type: does not use Do you feel safe at home: Yes Do you feel safe in your relationship?: Yes Meds Allergies and Home Medications Allergies Allergy/AdvReac Type Severity Reaction Status Date / Time No Known Allergies Allergy Verified 10/03/21 12:28 Home Medications Medication Instructions Recorded Confirmed Type ascorbic acid (vitamin C) [Vitamin 500 mg PO DAILY 04/22/13 10/06/21 History C] ergocalciferol (vitamin D2) 400 units PO DAILY tab-cap 04/22/13 10/06/21 History ginkgo biloba 400 mg PO DAILY 04/22/13 10/03/21 History Pradaxa 150 mg PO BID #180 tab-cap 09/18/13 10/06/21 History metoprolol succinate 1.5 tab PO DAILY #135 tab-cap 09/18/13 10/06/21 History tamsulosin 0.4 mg PO BID 08/21/21 10/06/21 History loperamide 2 mg PO QLOOSE PRN #30 cap 08/22/21 10/03/21 Rx omeprazole 20 mg PO DAILY #30 cap 08/22/21 10/06/21 Rx cholecalciferol (vitamin D3) 50 50 mcg PO DAILY 09/03/21 10/06/21 History mcg (2,000 unit) capsule fexofenadine 60 mg tablet 60 mg PO DAILY tab 09/03/21 10/03/21 History Exam Const General: cooperative and comfortable Neck Neck: supple Resp Effort & Inspection: normal respiratory effort Auscultation: clear to auscultation bilaterally Cardio Rate: regular rate Rhythm: regular rhythm GI Inspection: normal to inspection Palpation: soft and no masses Neuro General: patient alert, patient awake and patient oriented x3 Results Last Vital Signs Temp 36.5 C 10/06/21 07:29 Pulse 71 10/06/21 07:29 Resp 16 10/06/21 07:29 BP 119/85 10/06/21 07:29 Pulse Ox 98 10/06/21 07:29
[2021-10-06] MEDS: ceFAZolin 2,000 MG in Normal Saline 100 ML 200 MG IVPB (10:00)
[2021-10-06] MEDS: Omnipaque 300 MG/ML 50 ML BTL (10:17)
[2021-10-06] MEDS: Lidocaine 2% Jelly 6 ML SYR (10:17)
--- NOTE | 2021-10-06 10:32 | ROE_ITS ---
Date of service: 10/06/21 Time of Service: 10:32 Operative Note Operative Note DATE OF PROCEDURE: 10/06/21 PRE-OP DIAGNOSIS: Gross hematuria POST-OP DIAGNOSIS: same PROCEDURE: cystoscopy with right retrograde pyelogram SURGEON: Chidi Mahan ANESTHESIA TYPE: General:No Airway Refer to Anesthesia Record ESTIMATED BLOOD LOSS: 5 PATHOLOGY: none sent COMPLICATIONS: None Patient's condition: stable Implants: none Indications: This is a 76-year-old gentleman who has a finding of gross painless hematuria. He was evaluated with noncontrast imaging studies including a renal ultrasound and noncontrast CT scan. No solid renal masses or hydronephrosis was found. He did have a bladder diverticulum with some thickening of his bladder wall. He presents for cystoscopy with retrograde pyelogram to complete his hematuria work-up. Findings: bladder heavily trabeculated with diverticuli no bladder tumor Procedure Description: The patient was given preoperative antibiotics and brought to the operating room on 10/06/2021. After successful induction of general anesthesia without intubation, he was placed in the dorsal lithotomy position. His genitalia was prepped. 2% Xylocaine jelly was instilled into the urethra to act as a local anesthetic. The pendulous, bulbar and membranous urethra was all appeared normal with no strictures. The prostatic urethra showed some lateral lobe enlargement but no active bleeding. No papillary lesions were seen along the prostatic mucosa. The bladder neck was entered and the bladder mucosa was inspected. The bladder was heavily trabeculated with large mouth diverticuli seen. The right ureteral orifice was identified and cannulated with a 5 Spanish access catheter. Retrograde film was obtained by injecting Omnipaque through the access catheter under fluoroscopic guidance. No ureteral or renal pelvic filling defects were seen. The right side drained promptly. The left ureteral orifice was not visualized. The expected location of the orifice was in the region of a large diverticulum. Therefore, we did not do the left retrograde pyelogram. The remainder the bladder was inspected with both the 30 and the 70 degree lens. No papillary or nodular lesions were seen throughout the bladder. The bladder was emptied and the scope was removed. It appears that his hematuria is likely from an enlarged vascular prostate. If the hematuria continues, I would recommend treating him with a 5 alpha reductase inhibitor such as finasteride.
--- NOTE | 2021-10-06 10:32 | DI.RAD_ITS ---
Exam(s) XR RETROGRADE IN OR EXAM: XR RETROGRADE IN OR CLINICAL HISTORY: GROSS HEMATURIA. TECHNIQUE: 2D digital imaging was performed. COMPARISON: No exams were available for comparison FINDINGS: Prosperous provided during urologic procedure. See procedure report for details. Total fluoroscopy time 17.9 seconds Cumulative dose3.48 mGy IMPRESSION: DATA REPOSITORY: RADIATION DOSE DELIVERED:
--- NOTE | 2021-10-06 10:32 | W.PM.DSUDISC ---
Discharge Plan Disposition Patient Disposition: HOME Condition: Stable Discharge Details Reason For Visit: hematuria Attending Provider: Chidi Mahan Primary Care Provider: Any Gibbons Home Meds and New Rx's Prescriptions: No Action ergocalciferol (vitamin D2) 400 UNIT tablet 400 units PO DAILY RF: 0 ascorbic acid (vitamin C) [Vitamin C] 500 MG tablet 500 mg PO DAILY RF: 0 ginkgo biloba 400 MG capsule 400 mg PO DAILY RF: 0 metoprolol succinate 50 MG tablet extended release 24 hr 1.5 tab PO DAILY Qty: 135 RF: 4 Pradaxa 150 MG capsule 150 mg PO BID Qty: 180 RF: 4 fexofenadine 60 mg tablet 60 mg PO DAILY RF: 0 cholecalciferol (vitamin D3) 50 mcg (2,000 unit) capsule 50 mcg PO DAILY RF: 0 tamsulosin 0.4 mg capsule 0.4 mg PO BID RF: 0 loperamide 2 mg Capsule 2 mg PO QLOOSE PRNQty: 30 RF: 0 omeprazole 20 mg capsule,delayed release(DR/EC) 20 mg PO DAILY Qty: 30 RF: 0 Discharge Instructions Additional Instructions: restart Pradaxa 10/07 Followup yearly - sooner if hematuria is seen again Shower/Bathe:: 24 hours Diet:: As Tolerated Discharge Orders Discharge Orders: Discharge Order (Routine); Ordered 10/06/21 Ordered By: Chidi Mahan DS: Diagnosis Discharge Diagnosis (1) Gross hematuria: Status: Acute
--- NOTE | 2021-10-06 12:22 | W.ANESPOSTOP ---
Postoperative Evaluation Date, Time and Location Date Performed: 10/06/21 Time Performed: 11:10 Patient Location: Day Surgery Unit Vital Signs Most Recent Imported Vital Signs: Most Recent Vital Signs Temp Pulse Resp BP Pulse Ox 36.0 C L 67 15 116/80 100 10/06/21 11:45 10/06/21 11:45 10/06/21 11:45 10/06/21 11:45 10/06/21 11:45 Pain Score Most Recent Pain Score: Most Recent Pain Score Pain Level 0 10/06/21 11:45 Assessment Mental Status: Awake (Alert & Oriented to Patient Baseline) Airway and Respiratory Function: Patent airway with normal (patient baseline) respiratory exam Cardiovascular Function: Hemodynamically Stable Hydration Status: Adequately Hydrated Nausea & Vomiting: No Nausea or Vomiting Pain: Pt. Denies Any Pain Peripheral Nerve Block: Patient did not receive a nerve block
== END 2021-10-06 12:24 | disposition home or self-care (01) ==
PROVIDERS: PCP Physician Assistant; Visit Provider Urology
PROC: (CPT 74450; principal; 2021-10-06 08:30)
DX: R31.0 Gross hematuria (principal); E03.9 Hypothyroidism, unspecified; N40.0 Benign prostatic hyperplasia without lower urinary tract symptoms; N18.9 Chronic kidney disease, unspecified
CPT/HCPCS: 52005; 74420; J0690; J1100; J2405; J2704; Q9967

== ENCOUNTER 2021-10-31 10:28 | Outpatient (CLI) | payer MEDICARE, OTHER, SELFPAY ==
--- NOTE | 2021-10-31 10:15 | RT.EKG_ITS ---
APPROVED REPORT Exam: Resting ECG Reason for Exam: aflutter Patient Location: O HR:94 bpm ECG Measurements Heart Rate 94 AXIS WY [id number] P [id number] QRSd 135 QRS 0 QT 316 T 4 QTc 396 Conclusion Atrial flutter...A-rate [address]-T abnormalities Lead(s) aVF were not used for morphology analysis
== END 2021-10-31 10:29 | disposition home or self-care (01) ==
LOC: DI.CARD 10:29
PROVIDERS: PCP Physician Assistant; Visit Provider Internal Medicine Cardiovascular Disease
DX: I48.92 Unspecified atrial flutter (principal); I48.91 Unspecified atrial fibrillation
CPT/HCPCS: 93010

== ENCOUNTER → 2021-10-31 13:59 | Outpatient (BNVA) | payer MEDICARE, OTHER, SELFPAY | PROVIDERS: PCP Physician Assistant; Referring Provider Physician Assistant; Visit Provider Internal Medicine Cardiovascular Disease | DX: I48.92 Unspecified atrial flutter (principal); Z79.01 Long term (current) use of anticoagulants | CPT/HCPCS: 93005; 99203; 99213 ==

== ENCOUNTER → 2022-03-06 00:08 | Outpatient (CLI) | payer MEDICARE, OTHER, SELFPAY ==
--- NOTE | 2022-03-06 14:30 | DI.CT_ITS ---
Exam(s) CT CHEST WO EXAM: CT CHEST WO CLINICAL HISTORY: PULMONARY NODULE, R91.1, 6 MO F/U, INCREASED SIZE ON 07/2021 SCAN. TECHNIQUE: Imaging protocol: Axial computed tomography images were obtained and coronal and sagittal reformatted images were created and reviewed. COMPARISON: CT CT ABDOMEN PELVIS WO from 08/21/2021 FINDINGS: Tracheobronchial tree: Patent where visualized. Pulmonary parenchyma: No consolidation or dominant measurable mass. No architectural distortion. Ther e is a stable 3.7 mm nodule in the lateral aspect of the right lower lobe. Mediastinum and Lina: No dominant adenopathy or fluid collection. The esophagus is unremarkable.There is a moderate hiatal hernia. Thyroid gland: Unremarkable. Pleura: No effusion or pneumothorax. Heart: The heart is not dilated. Coronary artery calcification. No pericardial effusion. Aorta: Thoracic aorta non-dilated. Atherosclerosis. Upper abdomen: Cholelithiasis. Lymph nodes: Within normal limits. Soft tissues: Unremarkable. Bones:Within normal limits for the patient's age. IMPRESSION: Stable 3.7 mm nodule in the right lower lobe. In low risk patients, optional CT scan in 12 months ma y be considered. In high risk patients (history of smoking or other risk factors), a follow-up CT sc an in 12 months may be obtained. (Kaye et al, 2017) RADIATION DOSE DELIVERED: 596.21mGy.cm Total DLP 596.21mGy.cm Total DLP DATA REPOSITORY: All CT scans at this facility are submitted to the National Radiology Data Registry (NRDR) Dose Index Registry (DIR) with the [employer] ([employer]). RADIATION OPTIMIZATION: All CT scans at this facility use at least one of these dose optimization te chniques: automated exposure control; mA and/or kV adjustment per patient size (includes targeted exa ms where dose is matched to clinical indication); or iterative reconstruction.
== END ==
PROVIDERS: PCP Physician Assistant; Visit Provider Physician Assistant
DX: R91.1 Solitary pulmonary nodule (principal); K44.9 Diaphragmatic hernia without obstruction or gangrene
CPT/HCPCS: 71250

== ENCOUNTER 2022-09-16 15:53 | Outpatient (REF) | payer MEDICARE, OTHER, SELFPAY ==
[2022-09-16 21:11] LABS: ALT 14 U/L (16-63); AST 22 U/L (15-37); Albumin 3.5 g/dL (3.4-5.0); Alkaline Phosphatase 98 U/L (46-116); Anion Gap 6.7 mmol/L (3-11); BUN 14 mg/dL (7-18); Bilirubin, Total 0.6 mg/dL (0.2-1.0); CO2 25.3 mmol/L (21.0-32.0); CREATININE 1.6 mg/dL (0.70-1.30); Calcium 8.8 mg/dL (8.5-10.1); Chloride 106 mmol/L (98-107); Estimated GFR 43.56 (mL/min/1.73m2); Glucose 91 mg/dL (74-106); Potassium 4.7 mmol/L (3.5-5.1); Sodium 138 mmol/L (136-145); Total Protein 7.3 g/dL (6.4-8.2)
== END 2022-09-16 15:54 | disposition home or self-care (01) ==
LOC: NCHCN 15:53
PROVIDERS: PCP Physician Assistant; Visit Provider Physician Assistant
DX: I48.91 Unspecified atrial fibrillation (principal)
CPT/HCPCS: 80053

== ENCOUNTER → 2022-10-06 10:06 | Outpatient (BNVA) | payer MEDICARE, OTHER, SELFPAY | PROVIDERS: PCP Physician Assistant; Referring Provider Physician Assistant; Visit Provider Nurse Practitioner Gerontology | DX: R31.0 Gross hematuria (principal); N40.1 Benign prostatic hyperplasia with lower urinary tract symptoms; N13.8 Other obstructive and reflux uropathy | CPT/HCPCS: 51798; 81003; 99213 ==

== ENCOUNTER 2022-10-06 14:02 | Outpatient (REF) | payer MEDICARE, OTHER, SELFPAY ==
[2022-10-06 11:55] LABS: Bilirubin Negative (Negative); Blood Large (Negative); Clarity Sl Cloudy (Clear); Glucose Negative (Negative); Ketones Negative (Negative); Leukocyte Esterase Negative (Negative); Nitrite Negative (Negative); Specific Gravity >= 1.030 (1.005-1.025); Urobilinogen 0.2 EU/dL (Up TO 0.2)
[2022-10-06 12:03] LABS: Bacteria Negative HPF (Negative); C & S Indicated? No; Casts Negative LPF (Negative); Crystals Negative HPF (Negative); Epithelial Cells Few HPF (Negative); Mucus Negative (Negative); RBC >50 HPF (0-2)
== END 2022-10-06 14:03 | disposition home or self-care (01) ==
LOC: LBN 14:02
PROVIDERS: PCP Physician Assistant; Visit Provider Nurse Practitioner Gerontology
DX: N13.8 Other obstructive and reflux uropathy (principal); N40.1 Benign prostatic hyperplasia with lower urinary tract symptoms
CPT/HCPCS: 81003; 81015

== ENCOUNTER 2023-03-17 01:21 | Outpatient (CLI) | payer MEDICARE, OTHER, SELFPAY ==
--- NOTE | 2023-03-17 | DI.CT_ITS ---
Exam(s) CT CHEST WO EXAM: CT CHEST WO CLINICAL HISTORY: PULMONARY NODULE, R91.1, ANNUAL FOLLOW UP TECHNIQUE: Imaging Protocol: Axial computed tomography images with coronal and sagittal reformatted images were created and reviewed CONTRAST MATERIAL: Noncontrast COMPARISON: CT CT ABDOMEN/ PELVIS CTA from 05/16/[address] ABDOMEN PELVIS WO from 08/21/[address] CHEST WO from 03/06/2022 FINDINGS: Pulmonary parenchyma: No consolidation. Stable peripheral nodule at the lateral right lung base since 2019. No further follow-up recommended. Tracheobronchial tree: No bronchiectasis or mucous plugging. Mediastinum and Lina: No dominant adenopathy or fluid collection. Pleura: No effusion or pneumothorax. Heart: The heart is moderately dilated. Coronary artery calcifications are seen. Aorta: Thoracic aorta non-dilated. Mild atherosclerotic changes. Upper abdomen: Large hiatal hernia. Cholelithiasis. Bones: Degenerative changes. Soft tissues: Unremarkable. IMPRESSION: Stable nodule right lung base. No further follow-up recommended. RADIATION DOSE DELIVERED: 496.92mGy.cm Total DLP DATA REPOSITORY: All CT scans at this facility are submitted to the National Radiology Data Registry (NRDR) Dose Index Registry (DIR) with the [employer] ([employer]). RADIATION OPTIMIZATION: All CT scans at this facility use at least one of these dose optimization te chniques: automated exposure control; mA and/or kV adjustment per patient size (includes targeted exa ms where dose is matched to clinical indication); or iterative reconstruction.
== END 2023-03-17 01:41 ==
LOC: DI 01:21
PROVIDERS: PCP Physician Assistant; Visit Provider Physician Assistant
DX: R91.1 Solitary pulmonary nodule (principal)
CPT/HCPCS: 71250

== ENCOUNTER 2023-08-31 19:12 | Outpatient (REF) | payer MEDICARE, OTHER, SELFPAY ==
[2023-08-31 19:29] LABS: HGB 14.3 g/dL (13.5-17.5); MCH 27.4 pg (27.0-33.0); MCHC 32.5 % (32.0-36.0); MCV 85 fL (80-95); MPV 10.5 fL (8.0-11.0); Platelet Count 280 10^3/uL (130-400); RBC 5.21 10^6/uL (4.36-5.78); RDW 14.3 % (11.8-14.1); RDW-SD 44.1 fL; WBC 8.92 10^3/uL (4.4-10.8)
[2023-08-31 19:50] LABS: ALT 12 U/L (16-63); AST 15 U/L (15-37); Albumin 3.3 g/dL (3.4-5.0); Alkaline Phosphatase 98 U/L (46-116); BUN 14 mg/dL (7-18); Bilirubin, Total 0.7 mg/dL (0.2-1.0); CREATININE 1.7 mg/dL (0.70-1.30); Chloride 104 mmol/L (98-107); Estimated GFR 40.25 (mL/min/1.73m2); Glucose 101 mg/dL (74-106); Potassium 4.4 mmol/L (3.5-5.1); Sodium 138 mmol/L (136-145); Total Protein 7.2 g/dL (6.4-8.2)
== END 2023-08-31 19:13 | disposition home or self-care (01) ==
LOC: NCHCN 19:12
PROVIDERS: PCP Physician Assistant; Visit Provider Physician Assistant
DX: I48.91 Unspecified atrial fibrillation (principal)
CPT/HCPCS: 80053; 85027

== ENCOUNTER → 2023-10-13 10:37 | Outpatient (BNVA) | payer MEDICARE, OTHER, SELFPAY | PROVIDERS: PCP Physician Assistant; Referring Provider Physician Assistant; Visit Provider Nurse Practitioner Gerontology | DX: R31.0 Gross hematuria (principal) | CPT/HCPCS: 51798; 81003; 99213 ==

== ENCOUNTER 2024-04-25 12:23 | Outpatient (REF) | payer MEDICARE, OTHER, SELFPAY ==
[2024-04-25 19:10] LABS: Bacteria Many HPF (Negative); Epithelial Cells Negative HPF (Negative); WBC 20-50 HPF (0-5)
[2024-04-25 19:11] LABS: C & S Indicated? C&S Done As Ordered; Casts Negative LPF (Negative); Crystals Negative HPF (Negative); Mucus Negative (Negative)
[2024-04-25 19:13] LABS: Abs Immature Grans 0.02 10^3/uL (0.0-0.06); Absolute Basophil Count 0.07 10^3/uL (0.0-0.2); Absolute Eosinophil Count 0.58 10^3/uL (0.0-0.7); Absolute Monocyte Count 0.85 10^3/uL (0.1-0.8); Absolute Neutrophil Count 6.31 10^3/uL (1.2-6.7); Basophils % 0.8 %; Eosinophils % 6.3 %; HCT 44.8 % (40.0-50.0); HGB 14.4 g/dL (13.5-17.5); Immature Grans % 0.2 %; Lymphocytes % 15.2 %; MCH 28.1 pg (27.0-33.0); MCHC 32.1 % (32.0-36.0); MCV 88 fL (80-95); MPV 10.2 fL (8.0-11.0); Monocytes % 9.2 %; Neutrophils % 68.3 %; Platelet Count 319 10^3/uL (130-400); RBC 5.12 10^6/uL (4.36-5.78); RDW 13.9 % (11.8-14.1); RDW-SD 44.7 fL; WBC 9.23 10^3/uL (4.4-10.8)
[2024-04-25 19:24] LABS: ALT 13 U/L (16-63); AST 13 U/L (15-37); Albumin 3.3 g/dL (3.4-5.0); Alkaline Phosphatase 95 U/L (46-116); Anion Gap 4.6 mmol/L (3-11); BUN 17 mg/dL (7-18); Bilirubin, Total 0.6 mg/dL (0.2-1.0); CO2 29.4 mmol/L (21.0-32.0); CREATININE 1.5 mg/dL (0.70-1.30); Calcium 8.9 mg/dL (8.5-10.1); Chloride 107 mmol/L (98-107); Estimated GFR 46.48 (mL/min/1.73m2); Glucose 95 mg/dL (74-106); Potassium 4.6 mmol/L (3.5-5.1); Sodium 141 mmol/L (136-145)
== END 2024-04-25 12:24 | disposition home or self-care (01) ==
LOC: NCHCN 12:23
PROVIDERS: PCP Physician Assistant; Visit Provider Physician Assistant
DX: I48.91 Unspecified atrial fibrillation (principal); R31.29 Other microscopic hematuria
CPT/HCPCS: 80053; 87077; 81015; 85025; 87086; 87186

== ENCOUNTER 2024-05-09 17:09 | Outpatient (REF) | payer MEDICARE, OTHER, SELFPAY ==
[2024-05-09 20:55] LABS: Bacteria Rare HPF (Negative); C & S Indicated? C&S Done As Ordered; Casts 0-2 Hyaline LPF (Negative); Crystals Negative HPF (Negative); Epithelial Cells Rare HPF (Negative); Mucus Trace (Negative); Other Cells Rare Transitional (Negative); WBC 0-2 HPF (0-5)
== END 2024-05-09 17:10 | disposition home or self-care (01) ==
LOC: NCHCN 17:09
PROVIDERS: PCP Physician Assistant; Visit Provider Physician Assistant
DX: R31.29 Other microscopic hematuria (principal)
CPT/HCPCS: 81015; 87086

== ENCOUNTER → 2024-11-01 15:27 | Outpatient (BNVA) | payer MEDICARE, OTHER, SELFPAY | PROVIDERS: PCP Physician Assistant; Referring Provider Physician Assistant; Visit Provider Nurse Practitioner Gerontology | DX: R31.0 Gross hematuria (principal); N40.1 Benign prostatic hyperplasia with lower urinary tract symptoms; N13.8 Other obstructive and reflux uropathy | CPT/HCPCS: 51798; 81003; 99214 ==

== ENCOUNTER 2024-11-01 21:02 | Outpatient (REF) | payer MEDICARE, OTHER, SELFPAY ==
[2024-11-01 21:51] LABS: Bilirubin Negative (Negative); Blood Large (Negative); Clarity Cloudy (Clear); Glucose Negative (Negative); Ketones Trace mg/dL (Negative); Leukocyte Esterase Negative (Negative); Nitrite Negative (Negative); Urobilinogen 0.2 mg/dL (Up to 0.2)
[2024-11-01 22:09] LABS: C & S Indicated? No; RBC >50 HPF (0-2)
== END 2024-11-01 21:03 | disposition home or self-care (01) ==
LOC: LBN 21:02
PROVIDERS: PCP Physician Assistant; Visit Provider Nurse Practitioner Gerontology
DX: R31.9 Hematuria, unspecified (principal)
CPT/HCPCS: 81003; 81015

== ENCOUNTER 2025-04-26 15:55 | Outpatient (REF) | payer MEDICARE, OTHER, SELFPAY ==
[2025-04-26 18:26] LABS: Abs Immature Grans 0.03 10^3/uL (0.0-0.06); Absolute Basophil Count 0.13 10^3/uL (0.0-0.2); Absolute Eosinophil Count 0.56 10^3/uL (0.0-0.7); Absolute Monocyte Count 0.86 10^3/uL (0.1-0.8); Absolute Neutrophil Count 6.09 10^3/uL (1.2-6.7); Basophils % 1.5 %; Eosinophils % 6.3 %; HCT 41.9 % (40.0-50.0); HGB 13.4 g/dL (13.5-17.5); Immature Grans % 0.3 %; Lymphocytes % 13.5 %; MCH 26.8 pg (27.0-33.0); MCV 84 fL (80-95); MPV 10.7 fL (8.0-11.0); Monocytes % 9.7 %; Neutrophils % 68.7 %; Platelet Count 280 10^3/uL (130-400); RDW 14.6 % (11.8-14.1); RDW-SD 44.2 fL; WBC 8.87 10^3/uL (4.4-10.8)
[2025-04-26 18:52] LABS: ALT 6 U/L (16-63); AST 16 U/L (15-37); Albumin 3.2 g/dL (3.4-5.0); Alkaline Phosphatase 95 U/L (46-116); Anion Gap 7.2 mmol/L (3-11); BUN 22 mg/dL (7-18); Bilirubin, Total 0.7 mg/dL (0.2-1.0); CO2 25.8 mmol/L (21.0-32.0); CREATININE 1.7 mg/dL (0.70-1.30); Calcium 9.1 mg/dL (8.5-10.1); Chloride 106 mmol/L (98-107); Estimated GFR 39.75 (mL/min/1.73m2); Glucose 97 mg/dL (74-106); Potassium 4.5 mmol/L (3.5-5.1); Sodium 139 mmol/L (136-145); Total Protein 7.2 g/dL (6.4-8.2)
== END 2025-04-26 15:56 | disposition home or self-care (01) ==
LOC: NCHCN 15:55
PROVIDERS: PCP Physician Assistant; Visit Provider Physician Assistant
DX: N18.30 Chronic kidney disease, stage 3 unspecified (principal)
CPT/HCPCS: 80053; 85025

== ENCOUNTER 2025-09-18 14:00 | Outpatient (REF) | payer MEDICARE, OTHER, SELFPAY ==
[2025-09-18 19:46] LABS: Glucose Negative (Negative)
[2025-09-18 20:00] LABS: Iron 28 ug/dL (65-175); Total Iron Binding Capacity 293 ug/dL (250-450); Transferrin Sat 10 % (20-55)
[2025-09-18 20:08] LABS: Ferritin 149 ng/mL (26-388); TSH (W/Ref FT4) 4.24 uIU/mL (0.36-3.74)
[2025-09-18 20:39] LABS: RBC 20-50 HPF (0-2); WBC >50 HPF (0-5)
[2025-09-18 20:42] LABS: C-Reactive Protein 4.85 mg/dL (<or=0.5)
[2025-09-20 12:56] LABS: Albumin 49.5 % (55.8-66.1); Albumin g/dL 3.6 g/dL (3.6-5.2); Alpha 1 g/dL 0.40 g/dL (0.15-0.40); Alpha 2 g/dL 1.00 g/dL (0.50-1.00); Beta g/dL 1.10 g/dL (0.60-1.20); Gamma g/dL 1.20 g/dL (0.60-1.60); Total Protein 7.3 g/dL (6.3-8.2)
== END 2025-09-18 14:01 | disposition home or self-care (01) ==
LOC: NCHCN 14:00
PROVIDERS: PCP Physician Assistant; Visit Provider Physician Assistant
DX: R63.4 Abnormal weight loss (principal); R42 Dizziness and giddiness; R31.29 Other microscopic hematuria
CPT/HCPCS: 87077; 81003; 81015; 82728; 83540; 83550; 84165; 84439; 84443; 86140; 87086; 87186

== ENCOUNTER 2025-09-20 17:38 | Outpatient (REF) | payer MEDICARE, OTHER, SELFPAY ==
[2025-09-20 19:45] LABS: Abs Immature Grans 0.07 10^3/uL (0.0-0.06); HCT 44.3 % (40.0-50.0); HGB 14.1 g/dL (13.5-17.5); Immature Grans % 0.5 %; MCH 26.2 pg (27.0-33.0); MCHC 31.8 % (32.0-36.0); MCV 82 fL (80-95); MPV 9.9 fL (8.0-11.0); Platelet Count 445 10^3/uL (130-400); RBC 5.38 10^6/uL (4.36-5.78); RDW 14.1 % (11.8-14.1); RDW-SD 41.6 fL; WBC 13.03 10^3/uL (4.4-10.8)
[2025-09-20 19:53] LABS: Anion Gap 7.3 mmol/L (3-11); BUN 17 mg/dL (7-18); CO2 28.7 mmol/L (21.0-32.0); Calcium 9.2 mg/dL (8.5-10.1); Chloride 102 mmol/L (98-107); Glucose 102 mg/dL (74-106); Potassium 4.4 mmol/L (3.5-5.1); Sodium 138 mmol/L (136-145)
== END 2025-09-20 17:39 | disposition home or self-care (01) ==
LOC: NCHCN 17:38
PROVIDERS: PCP Physician Assistant; Visit Provider Physician Assistant
DX: E61.1 Iron deficiency (principal); R63.4 Abnormal weight loss
CPT/HCPCS: 80048; 85025

== ENCOUNTER → 2025-10-31 13:27 | Outpatient (BNVA) | payer MEDICARE, OTHER, SELFPAY | PROVIDERS: PCP Physician Assistant; Visit Provider Nurse Practitioner Gerontology | DX: N40.1 Benign prostatic hyperplasia with lower urinary tract symptoms (principal); N13.8 Other obstructive and reflux uropathy; R31.0 Gross hematuria | CPT/HCPCS: 99213; 81002 ==

== ENCOUNTER 2025-10-31 14:19 | Outpatient (REF) | payer MEDICARE, OTHER, SELFPAY | END 2025-10-31 14:20 | disposition home or self-care (01) | LOC: LBN 14:19 | PROVIDERS: PCP Physician Assistant; Visit Provider Nurse Practitioner Gerontology | DX: R31.0 Gross hematuria (principal); N40.1 Benign prostatic hyperplasia with lower urinary tract symptoms; N13.8 Other obstructive and reflux uropathy | CPT/HCPCS: 87077; 87086; 87186 ==